=== PATIENT | male | born 1950 | race Caucasian/White ===

== ENCOUNTER 2022-02-24 13:11 | Inpatient (IN) | payer MEDICARE ==
[~2022-02-24] VITALS: Ht 172.7 cm; Wt 99.5 kg
[2022-02-24] MEDS ORDERED: KAPSPARGO SPRIN50 MG PO (13:32)
[2022-02-24] MEDS ORDERED: ACET500 PO (13:33)
[2022-02-24 13:55] LABS: BASOPHILS ABSOLUTE AUTO 0.03 K/mm3 (0.00-0.23); BASOPHILS PERCENT AUTO 0 % (0-2); EOSINOPHILS ABSOLUTE AUTO 0.15 K/mm3 (0.00-0.68); EOSINOPHILS PERCENT AUTO 2 % (0-6); Hematocrit 47.7 % (37.0-53.0); Hemoglobin 15.6 g/dL (13.5-17.5); IMMATURE GRAN ABSOLUTE AUTO 0.02 K/mm3 (0.00-0.10); IMMATURE GRAN PERCENT AUTO 0 % (0-1); LYMPHOCYTES ABSOLUTE AUTO 1.44 K/mm3 (0.84-5.20); LYMPHOCYTES PERCENT AUTO 19 % (21-46); MONOCYTES PERCENT AUTO 9 % (4-13); Mean Corpuscular HGB 29.9 pg (26.0-34.0); Mean Corpuscular HGB Conc 32.7 g/dL (31.5-36.5); Mean Corpuscular Volume 91 fL (80-100); Mean Platelet Volume 10.5 fL (9.1-12.4); NEUTROPHILS ABSOLUTE AUTO 5.16 K/mm3 (1.96-9.15); NEUTROPHILS PERCENT AUTO 69 % (41-73); Platelet Count 226 K/mm3 (150-400); RDW Coefficient Variation 14.8 % (11.7-14.2); RDW Standard Deviation 50.4 fL (35.1-46.3); Red Blood Cell Count 5.22 M/mm3 (4.30-5.90)
[2022-02-24 14:16] LABS: Albumin, Blood 3.5 g/dL (3.4-5.0); Albumin/Globulin Ratio 1.1 (0.8-1.8); Bilirubin, Total 0.6 mg/dL (0.1-1.0); Bun/Creatinine Ratio 21.2 (12.0-20.0); Calcium, Blood 8.8 mg/dL (8.5-10.1); Creatinine, Blood 0.99 mg/dL (0.60-1.20); Globulin, Blood 3.1 g/dL (2.2-4.0); Potassium, Blood 4.6 mmol/L (3.5-5.5); Total Protein, Blood 6.6 g/dL (6.4-8.2)
[2022-02-24 14:35] LABS: Anti-Xa UFH, PHA Monitoring <0.10 IU/mL; International Normalized Ratio 1.04; Prothrombin Time Results 10.9 Sec (9.7-11.5)
--- NOTE | 2022-02-24 17:33 | NUR ---
NURSING PCU DAYSHIFT ADMIT/SUMMARY: Assumed care of pt at approx 1625. Arrived from ER via gurney accompanied by RN and luz elena springer independently to unit bed. Skin is dry w/scattered scabs to LE's from working outside, no other wounds noted. Denies any pain/discomfort at rest though experiences chronic back pain at times. Tele in place, afib w/HR 100-120, no c/o CP/pressure, HTN prior to meds, no noted edema. L/S cta t/o, O2 sat 99-100% on RA, denies dyspnea, no noted cough. Abd SNT, BT+, voids w/o difficulty. PIV x2, hep gtt infusing per pharmacy dosing, NS at 125/hr. Pt denies any current needs or questions regarding plan of care. Provided afib education, discussed plan for stress test in a.m., CT PE results and cardio consult reviewed. Pt has been able to ambulate independently and w/o difficulty, call light in reach, cont to monitor until rpt is given to NOC RN.
--- NOTE | 2022-02-24 20:30 | NUR ---
ASSUMED CARE OF PATIENT AT APPROXIMATELY 1900 FROM ALEXANDRA Collins RN. PATIENT ALERT AND ORIENTED X4; INDEPENDENT TO BATHROOM AND IN ROOM. PATIENT DENIES CP/PRESSURE, PAIN ELSEWHERE, NUMBNESS, TINGLING, DIZZINESS AND NAUSEA. AFIB ON TELE; OXYGEN SATURATION ABOVE 90% ON ROOM AIR; HEPARIN GTT AND NS INFUSING PER ORDER. 2X PIV. PATIENT TO BE NPO AT MIDNIGHT
[2022-02-25 04:21] LABS: Hematocrit 44.1 % (37.0-53.0); Hemoglobin 14.3 g/dL (13.5-17.5); Mean Corpuscular HGB 29.4 pg (26.0-34.0); Mean Corpuscular HGB Conc 32.4 g/dL (31.5-36.5); Mean Corpuscular Volume 91 fL (80-100); Mean Platelet Volume 10.7 fL (9.1-12.4); Platelet Count 212 K/mm3 (150-400); RDW Coefficient Variation 14.8 % (11.7-14.2); RDW Standard Deviation 49.8 fL (35.1-46.3); Red Blood Cell Count 4.86 M/mm3 (4.30-5.90); White Blood Cell Count 7.77 K/mm3 (4.00-11.30)
[2022-02-25 04:40] LABS: Anion Gap 6 mmol/L (6-16); Blood Urea Nitrogen 18 mg/dL (8-24); Bun/Creatinine Ratio 19.5 (12.0-20.0); CHOL/HDL RATIO 5.8; CO2, Blood 22 mmol/L (21-32); Chloride, Blood 113 mmol/L (98-108); Cholesterol 209 mg/dL (50-200); Creatinine, Blood 0.92 mg/dL (0.60-1.20); Glomerular Filtration Rate 88 (60-); Glucose, Blood 88 mg/dL (70-99); HDL Cholesterol 36 mg/dL (>39); LDL/HDL RATIO 3.8; Low Density Lipoprotein Chol 138 mg/dL (0-110); Potassium, Blood 4.4 mmol/L (3.5-5.5); Sodium, Blood 141 mmol/L (136-145); Triglycerides 176 mg/dL (30-160); Very Low Density Lipoprot Chol 35 mg/dL (6-32)
--- NOTE | 2022-02-25 06:28 | NUR ---
PATIENT SLEPT ABOUT SEVEN HOURS LAST NIGHT; MEDICATED TWICE FOR HEART RATE. NO OTHER ACUTE CHANGES TO REPORT.
--- NOTE | 2022-02-25 07:16 | NUR ---
Am Note Pt alert, oriented x4, calm and cooperative with care. Pt resting in bed, sba in room. Pt denies pain, chest pain/pressure, sob, nausea, dizziness/lightheadedness and numb/tingling. Tele afib 100-120, bp stable, heparin gtt per orders, plans for stress test today. Pt ls clear t/o, spo2 >90% on ra, breathing even and unlabored. Abd soft, nontender, normoactive bt t/o. Pt has been npo since midnight other than sips of water. Other vss. Will continue to monitor.
--- NOTE | 2022-02-25 17:40 | NUR ---
Shift Summary New order from Dr Amin for additional dose of metoprolol 25mg this am. Pt completed stress test this afternoon, awaiting results; hr during stress 150's back down to 100's. Other vss. No other acute changes noted. Will continue to monitor until report given to oncoming rn.
[2022-02-26 04:29] LABS: BASOPHILS ABSOLUTE AUTO 0.05 K/mm3 (0.00-0.23); BASOPHILS PERCENT AUTO 1 % (0-2); EOSINOPHILS ABSOLUTE AUTO 0.23 K/mm3 (0.00-0.68); EOSINOPHILS PERCENT AUTO 3 % (0-6); Hematocrit 45.7 % (37.0-53.0); Hemoglobin 14.9 g/dL (13.5-17.5); IMMATURE GRAN ABSOLUTE AUTO 0.03 K/mm3 (0.00-0.10); IMMATURE GRAN PERCENT AUTO 0 % (0-1); LYMPHOCYTES ABSOLUTE AUTO 1.53 K/mm3 (0.84-5.20); LYMPHOCYTES PERCENT AUTO 20 % (21-46); MONOCYTES ABSOLUTE AUTO 0.75 K/mm3 (0.16-1.47); MONOCYTES PERCENT AUTO 10 % (4-13); Mean Corpuscular HGB 29.4 pg (26.0-34.0); Mean Corpuscular HGB Conc 32.6 g/dL (31.5-36.5); Mean Corpuscular Volume 90 fL (80-100); Mean Platelet Volume 11.2 fL (9.1-12.4); NEUTROPHILS ABSOLUTE AUTO 5.12 K/mm3 (1.96-9.15); NEUTROPHILS PERCENT AUTO 67 % (41-73); Platelet Count 209 K/mm3 (150-400); RDW Coefficient Variation 14.6 % (11.7-14.2); RDW Standard Deviation 48.7 fL (35.1-46.3); Red Blood Cell Count 5.06 M/mm3 (4.30-5.90); White Blood Cell Count 7.71 K/mm3 (4.00-11.30)
[2022-02-26 04:50] LABS: Bun/Creatinine Ratio 18.7 (12.0-20.0); Calcium, Blood 8.6 mg/dL (8.5-10.1); Creatinine, Blood 0.86 mg/dL (0.60-1.20); Potassium, Blood 4.1 mmol/L (3.5-5.5)
--- NOTE | 2022-02-26 05:55 | NUR ---
SHIFT SUMMARY PT ALERT AND ORIENTD X4. AFEBRILE. ON RA SATS OVER 96%. BP STABLE. HR AFIB 100-130'S. TACHY TO 160 WITH AMBULATION TO BATHROOM. PT DENIES CP OR ANY DISCOMFORT. INDEPENDENT FOR ADL'S. IN BED SLEEPING WITH CALL ALARM AT SIDE, WILL CONTINUE TO MONITOR UNTIL REPORT GIVEN TO DAYSHIFT RN
[2022-02-26] MEDS ORDERED: ASPI81CH PO (09:43)
[2022-02-26] MEDS ORDERED: METO50 PO (09:43)
[2022-02-26] MEDS ORDERED: ELIQUIS5 M2 PO (09:44)
--- NOTE | 2022-02-26 11:08 | NUR ---
DISCHARGE UPDATE DISCHARGE PACKET GONE OVER WITH PT AT 1050. PT LEFT UNIT AT 1100 VIA WHEELCHAIR AND ON RA. DISCHARGE PACKET IN BAG ALONG WITH PT PERSONAL BELONGINGS AND WITH PT DURING DISCHARGE. PT ABLE TO TRANSFER TO AND FROM WHEELCHAIR ON HIS OWN, TOLERATED WELL.
[2022-02-26] MEDS ORDERED: XARELTO20 MG PO (12:43)
--- NOTE | 2022-02-26 12:45 | NUR ---
AFTER DISCHARGE, PT CALLED PCU STATING HE COULD'T AFFORD THE CO-PAY OF [facility]. CALLED DR. GARY, CHANGED RX TO XARELTO. CALLED [facility] AND UPDATED PRESCRIPTION. CALLED PATIENT BACK WITH NEW CO-PAY AND FOR THE XARELTO TRIAL OFFER VOUCHER. PT STATED WAS ABLE TO AFFORD AND WAS HEADED TO [facility] NOW.
== END 2022-02-26 11:14 | disposition home or self-care (01) | DRG 282 ==
LOC: ER 13:11 → PCU 15:02
PROVIDERS: Emergency Medicine; Internal Medicine; Nurse Practitioner Acute Care; ADMIT Internal Medicine
DX: I48.91 Unspecified atrial fibrillation (principal); I21.A1 Myocardial infarction type 2; E86.0 Dehydration; N28.9 Disorder of kidney and ureter, unspecified; Z87.891 Personal history of nicotine dependence
CPT/HCPCS: 36415; 71260; 78452; 80048; 80053; 80061; 83036; 83735; 84443; 84484; 85025; 85027; 85520; 85610; 85730; 93005; 93010; 93017; 93306; 96365-59; 96375-59; 99291-25; A9270; A9500; J1644; J2785; J7030; Q9967

== ENCOUNTER → 2022-02-24 | Outpatient (CLI) | payer OTHER ==
[~2022-02-24] MED LIST: ACET500 PO; ASPI81CH PO; ELIQUIS5 M2 PO; KAPSPARGO SPRIN50 MG PO; METO50 PO; XARELTO20 MG PO
[2022-02-24 11:59] LABS: BASOPHILS ABSOLUTE AUTO 0.06 K/mm3 (0.00-0.23); BASOPHILS PERCENT AUTO 1 % (0-2); EOSINOPHILS ABSOLUTE AUTO 0.15 K/mm3 (0.00-0.68); EOSINOPHILS PERCENT AUTO 2 % (0-6); IMMATURE GRAN ABSOLUTE AUTO 0.02 K/mm3 (0.00-0.10); IMMATURE GRAN PERCENT AUTO 0 % (0-1); LYMPHOCYTES ABSOLUTE AUTO 1.24 K/mm3 (0.84-5.20); LYMPHOCYTES PERCENT AUTO 16 % (21-46); MONOCYTES ABSOLUTE AUTO 0.73 K/mm3 (0.16-1.47); MONOCYTES PERCENT AUTO 9 % (4-13); Mean Corpuscular HGB 29.8 pg (26.0-34.0); Mean Corpuscular HGB Conc 32.6 g/dL (31.5-36.5); Mean Corpuscular Volume 91 fL (80-100); Mean Platelet Volume 11.1 fL (9.1-12.4); NEUTROPHILS PERCENT AUTO 72 % (41-73); Platelet Count 279 K/mm3 (150-400); Red Blood Cell Count 6.05 M/mm3 (4.30-5.90)
[2022-02-24 12:00] LABS: Hematocrit 55.2 % (37.0-53.0)
[2022-02-24 12:17] LABS: Albumin, Blood 4.4 g/dL (3.4-5.0); Albumin/Globulin Ratio 1.1 (0.8-1.8); Bilirubin, Total 0.5 mg/dL (0.1-1.0); Bun/Creatinine Ratio 19.7 (12.0-20.0); Calcium, Blood 10.1 mg/dL (8.5-10.1); Creatinine, Blood 1.22 mg/dL (0.60-1.20); Potassium, Blood 4.3 mmol/L (3.5-5.5); Thyroid Stimulating Hormone 2.187 uIU/mL (0.360-4.800); Total Protein, Blood 8.4 g/dL (6.4-8.2)
== END | disposition home or self-care (01) ==
LOC: LAB SHORT 11:50
PROVIDERS: Physician Assistant
DX: R07.9 Chest pain, unspecified (principal); R53.83 Other fatigue
CPT/HCPCS: 80053; 84443; 84484; 85025; 85379

== ENCOUNTER → 2022-03-03 | Outpatient (CLI) | payer MEDICARE ==
[2022-03-03 14:41] LABS: BASOPHILS ABSOLUTE AUTO 0.04 K/mm3 (0.00-0.23); BASOPHILS PERCENT AUTO 1 % (0-2); EOSINOPHILS ABSOLUTE AUTO 0.16 K/mm3 (0.00-0.68); EOSINOPHILS PERCENT AUTO 2 % (0-6); Hematocrit 44.5 % (37.0-53.0); Hemoglobin 14.8 g/dL (13.5-17.5); IMMATURE GRAN ABSOLUTE AUTO 0.02 K/mm3 (0.00-0.10); IMMATURE GRAN PERCENT AUTO 0 % (0-1); LYMPHOCYTES ABSOLUTE AUTO 1.03 K/mm3 (0.84-5.20); LYMPHOCYTES PERCENT AUTO 14 % (21-46); MONOCYTES ABSOLUTE AUTO 0.89 K/mm3 (0.16-1.47); MONOCYTES PERCENT AUTO 12 % (4-13); Mean Corpuscular HGB 30.1 pg (26.0-34.0); Mean Corpuscular HGB Conc 33.3 g/dL (31.5-36.5); Mean Corpuscular Volume 90 fL (80-100); Mean Platelet Volume 10.6 fL (9.1-12.4); NEUTROPHILS ABSOLUTE AUTO 5.05 K/mm3 (1.96-9.15); NEUTROPHILS PERCENT AUTO 70 % (41-73); Platelet Count 277 K/mm3 (150-400); RDW Coefficient Variation 14.4 % (11.7-14.2); RDW Standard Deviation 47.8 fL (35.1-46.3); Red Blood Cell Count 4.92 M/mm3 (4.30-5.90); White Blood Cell Count 7.19 K/mm3 (4.00-11.30)
[2022-03-03 15:00] LABS: Albumin, Blood 3.4 g/dL (3.4-5.0); Albumin/Globulin Ratio 0.9 (0.8-1.8); Bilirubin, Total 0.5 mg/dL (0.1-1.0); Bun/Creatinine Ratio 17.4 (12.0-20.0); Calcium, Blood 8.9 mg/dL (8.5-10.1); Creatinine, Blood 1.32 mg/dL (0.60-1.20); Globulin, Blood 3.7 g/dL (2.2-4.0); Potassium, Blood 4.1 mmol/L (3.5-5.5); Total Protein, Blood 7.1 g/dL (6.4-8.2)
== END | disposition home or self-care (01) ==
LOC: LAB SHORT 14:38 → LAB 14:38
PROVIDERS: Chiropractor
DX: I48.91 Unspecified atrial fibrillation (principal)
CPT/HCPCS: 80053; 84484; 85025; 85379

== ENCOUNTER 2022-03-23 11:21 | Day surgery (SDC) | payer MEDICARE ==
[~2022-03-23] VITALS: Ht 172.7 cm; Wt 100.0 kg
[~2022-03-23 11:21] MED LIST changes: +METO25ER PO
--- NOTE | 2022-03-23 14:12 | NUR ---
PT TOLERATED KARISHMA/CARDIOVERSION WELL. CALL LIGHT IN REACH.
--- NOTE | 2022-03-23 15:10 | NUR ---
DISCHARGE INSTRUCTIONS REVIEWED AND ALL QUESTIONS ANSWERED. 20 G IV DISCONTINUED FROM RIGHT AC WITH INTACT CANNULA. PT DRANK WATER WITH NO ASPIRATION. DR DUMONT IN ROOM TO SEE PT. PT ESCORTED OUT VIA WHEELCHAIR ESCORT.
== END 2022-03-23 22:41 | disposition home or self-care (01) ==
LOC: MHTC 11:21
DX: I48.91 Unspecified atrial fibrillation (principal); I08.1 Rheumatic disorders of both mitral and tricuspid valves; G47.10 Hypersomnia, unspecified
CPT/HCPCS: 92960; 93005; 93010; 93312; 93325; A9270; J2704; J7120

== ENCOUNTER 2022-08-13 13:03 | Observation (INO) | payer MEDICARE ==
[~2022-08-13] VITALS: Ht 172.7 cm; Wt 98.4 kg
[~2022-08-13 13:03] MED LIST changes: +LISI5 PO; +Pepcid40 MG PO
[2022-08-13 13:41] LABS: BASOPHILS ABSOLUTE AUTO 0.05 K/mm3 (0.00-0.23); BASOPHILS PERCENT AUTO 1 % (0-2); EOSINOPHILS ABSOLUTE AUTO 0.13 K/mm3 (0.00-0.68); EOSINOPHILS PERCENT AUTO 2 % (0-6); Hematocrit 38.8 % (37.0-53.0); Hemoglobin 12.8 g/dL (13.5-17.5); IMMATURE GRAN ABSOLUTE AUTO 0.03 K/mm3 (0.00-0.10); IMMATURE GRAN PERCENT AUTO 0 % (0-1); LYMPHOCYTES ABSOLUTE AUTO 0.77 K/mm3 (0.84-5.20); LYMPHOCYTES PERCENT AUTO 9 % (21-46); MONOCYTES ABSOLUTE AUTO 0.72 K/mm3 (0.16-1.47); MONOCYTES PERCENT AUTO 8 % (4-13); Mean Corpuscular HGB 29.1 pg (26.0-34.0); Mean Corpuscular Volume 88 fL (80-100); NEUTROPHILS ABSOLUTE AUTO 6.83 K/mm3 (1.96-9.15); NEUTROPHILS PERCENT AUTO 80 % (41-73); Platelet Count 225 K/mm3 (150-400); RDW Standard Deviation 49.4 fL (35.1-46.3); White Blood Cell Count 8.53 K/mm3 (4.00-11.30)
[2022-08-13 14:01] LABS: Albumin, Blood 3.4 g/dL (3.4-5.0); Bilirubin, Total 0.3 mg/dL (0.1-1.0); Bun/Creatinine Ratio 19.3 (12.0-20.0); Calcium, Blood 9.1 mg/dL (8.5-10.1); Creatinine, Blood 1.14 mg/dL (0.60-1.20); Globulin, Blood 3.3 g/dL (2.2-4.0); Potassium, Blood 4.4 mmol/L (3.5-5.5); Total Protein, Blood 6.7 g/dL (6.4-8.2)
--- NOTE | 2022-08-13 19:43 | NUR ---
PT ARRIVED TO THE UNIT ORIENTED TO THE ROOM. MEDICATED PER EMAR FOR PAIN. BED IN THE LOW POSITION CALL LIGHT IN REACH PT INSTRUCTED TO CALL BEFORE GETTING UP
--- NOTE | 2022-08-14 06:45 | NUR ---
DEMETRICE SLEPT WELL OVERNIGHT. MEDICATED ONCE FOR LEFT SHOULDER AND FACIAL PAIN DUE TO GROUND LEVEL FALL DURING SYNCOPAL EPISODE AT HOME YESTERDAYS. HE CALLS APPROPRIATELY TO GET OOB. NO EPISODES OF SYNCOPE OR DISEQULIBRIUM OVERNIGHT. PATIENT'S HR WAS SR IN THE 40'S AND LOW 50'S ON TELE
--- NOTE | 2022-08-14 17:18 | NUR ---
SHIFT SUMMARY PATIENT IS ALERT AND ORIENTED. PATIENT IS PLEASENT AND COOPERATIVE WITH CARE. PATIENT HAS HAD NO ACUTE EVENTS THIS SHIFT. VITAL SIGNS REVIEWED. PATIENT HAS NOT COMPLAINED OF PAIN, SOB, NAUSEA, OR VOMITTING THIS SHIFT. BED IN LOCKED AND LOWEST POSITION. CALL LIGHT IN PLACE WILL MONITOR UNTIL SHIFT CHANGE.
--- NOTE | 2022-08-15 04:55 | NUR ---
SHIFT SUMMARY ALERT AND ORIENTED X4. DENIES PAIN. INDEPENDENT IN ROOM. PLEASANT AND COOPERATIVE WITH CARE. ON TELEMETRY, WHEN SLEEPING, HAS BEEN RUNNING SINUS MAY 39 TO 45 PER MEDICAL ADMINISTRATIVE SPECIALIST. WILL CONTINUE TO MONITR AND FOLLOW PLAN OF CARE.
--- NOTE | 2022-08-15 11:51 | NUR ---
SHIFT SUMMARY PATIENT IS ALERT AND ORIENTED. PATIENT HAD ZIO PATCH PLACED THIS MORNING. PATIENT IS AWARE OF ZIO PATCH FUNCTION AND MONITORING. PATIENT HAS HAD NO ACUTE EVENTS THIS SHIFT. VITAL SIGNS REVIEWED. PATIENT IS BEING DISCHARGED HOME BY FRIEND. [facility] IS TRANSPORTING PATIENT TO FRIENDS CAR.
== END 2022-08-15 11:32 | disposition home or self-care (01) ==
LOC: ER 13:03 → MEDS 13:04
PROVIDERS: Emergency Medicine; ADMIT Internal Medicine
DX: I48.0 Paroxysmal atrial fibrillation (principal); I49.5 Sick sinus syndrome; I25.2 Old myocardial infarction; K21.9 Gastro-esophageal reflux disease without esophagitis; I10 Essential (primary) hypertension; Z87.891 Personal history of nicotine dependence; Z79.01 Long term (current) use of anticoagulants
CPT/HCPCS: 36415; 70450; 71045; 73030; 80053; 84443; 84484; 85025; 93005; 93010; 93246; 96360; 96361; 99285-25; A9270; G0378; J7030

== ENCOUNTER 2022-09-11 19:18 | Inpatient (IN) | payer MEDICARE ==
[~2022-09-11] VITALS: Ht 172.7 cm; Wt 101.0 kg
[2022-09-11] MEDS ORDERED: Prinivil10 MG PO (19:34)
[2022-09-11 19:42] LABS: BASOPHILS ABSOLUTE AUTO 0.03 K/mm3 (0.00-0.23); BASOPHILS PERCENT AUTO 1 % (0-2); EOSINOPHILS ABSOLUTE AUTO 0.27 K/mm3 (0.00-0.68); EOSINOPHILS PERCENT AUTO 4 % (0-6); Hematocrit 37.3 % (37.0-53.0); Hemoglobin 12.6 g/dL (13.5-17.5); IMMATURE GRAN ABSOLUTE AUTO 0.03 K/mm3 (0.00-0.10); IMMATURE GRAN PERCENT AUTO 1 % (0-1); LYMPHOCYTES ABSOLUTE AUTO 1.38 K/mm3 (0.84-5.20); LYMPHOCYTES PERCENT AUTO 22 % (21-46); MONOCYTES ABSOLUTE AUTO 0.49 K/mm3 (0.16-1.47); MONOCYTES PERCENT AUTO 8 % (4-13); Mean Corpuscular HGB 29.9 pg (26.0-34.0); Mean Corpuscular HGB Conc 33.8 g/dL (31.5-36.5); Mean Corpuscular Volume 89 fL (80-100); Mean Platelet Volume 10.2 fL (9.1-12.4); NEUTROPHILS ABSOLUTE AUTO 4.13 K/mm3 (1.96-9.15); NEUTROPHILS PERCENT AUTO 65 % (41-73); Platelet Count 262 K/mm3 (150-400); RDW Standard Deviation 48.6 fL (35.1-46.3); Red Blood Cell Count 4.21 M/mm3 (4.30-5.90); White Blood Cell Count 6.33 K/mm3 (4.00-11.30)
[2022-09-11 20:00] LABS: Albumin, Blood 3.4 g/dL (3.4-5.0); Albumin/Globulin Ratio 1.1 (0.8-1.8); Bilirubin, Total 0.2 mg/dL (0.1-1.0); Bun/Creatinine Ratio 21.8 (12.0-20.0); Creatinine, Blood 1.01 mg/dL (0.60-1.20); Globulin, Blood 3.2 g/dL (2.2-4.0); Potassium, Blood 3.6 mmol/L (3.5-5.5); Total Protein, Blood 6.6 g/dL (6.4-8.2)
[2022-09-11 23:05] LABS: Magnesium, Blood 1.9 mg/dL (1.6-2.4)
[2022-09-12 00:48] LABS: Prothrombin Time Results 10.5 Sec (9.7-11.5)
[2022-09-12 02:02] LABS: BASOPHILS ABSOLUTE AUTO 0.04 K/mm3 (0.00-0.23); BASOPHILS PERCENT AUTO 1 % (0-2); EOSINOPHILS ABSOLUTE AUTO 0.26 K/mm3 (0.00-0.68); EOSINOPHILS PERCENT AUTO 4 % (0-6); Hematocrit 37.2 % (37.0-53.0); Hemoglobin 12.2 g/dL (13.5-17.5); IMMATURE GRAN ABSOLUTE AUTO 0.03 K/mm3 (0.00-0.10); IMMATURE GRAN PERCENT AUTO 1 % (0-1); LYMPHOCYTES PERCENT AUTO 23 % (21-46); MONOCYTES ABSOLUTE AUTO 0.72 K/mm3 (0.16-1.47); MONOCYTES PERCENT AUTO 11 % (4-13); Mean Corpuscular HGB 29.2 pg (26.0-34.0); Mean Corpuscular HGB Conc 32.8 g/dL (31.5-36.5); Mean Corpuscular Volume 89 fL (80-100); NEUTROPHILS ABSOLUTE AUTO 3.94 K/mm3 (1.96-9.15); NEUTROPHILS PERCENT AUTO 61 % (41-73); Platelet Count 234 K/mm3 (150-400); RDW Coefficient Variation 14.9 % (11.7-14.2); RDW Standard Deviation 49.1 fL (35.1-46.3); Red Blood Cell Count 4.18 M/mm3 (4.30-5.90); White Blood Cell Count 6.49 K/mm3 (4.00-11.30)
[2022-09-12 02:21] LABS: Albumin, Blood 3.1 g/dL (3.4-5.0); Bilirubin, Total 0.2 mg/dL (0.1-1.0); Bun/Creatinine Ratio 23.5 (12.0-20.0); Calcium, Blood 9.3 mg/dL (8.5-10.1); Creatinine, Blood 0.9 mg/dL (0.60-1.20); Potassium, Blood 4.4 mmol/L (3.5-5.5); Total Protein, Blood 6.1 g/dL (6.4-8.2)
--- NOTE | 2022-09-12 05:33 | NUR ---
ASSUEMED CARE OF PATIENT AT 22:54 LAST EVENING UPON TRANSFER FROM ER. PATIENT HAS DENIED RETURN OF CHEST PAIN HE EXPERIENCED AT HOME, REPORTING THAT IT WAS RELIEVED WITH 3 SUBLINGUAL NITROGLYCERIN AND MORPHINE FROM EMS. TROPONIN INCREASED FROM INTITIAL RESULT OF 15 TO 1108. AGAIN, PT DENIED ANY CHEST PAIN, SHORTNESS OF BREATH, NAUSEA, PAIN TO JAW OR ARMS. AFIB RVR: RATES IMPROVED FROM INITIAL PRESENTATION WITH RATES IN THE 130s-150s. DILTIAZEM DRIP TITRATED UP TO 15 MG PER HOUR AND THEN TITRATED BACK DOWN TO 5 MG PER HOUR. RATES ARE NOW IN THE 90s -110S. BLOOD PRESSURE REMAINS STABLE. HEPARIN DRIP INFUSING AT 15 UNITS/KG/HOUR USING AN ADJUSTED WEIGHT OF 82 KG. 1ST PTT SCHEDULED FOR 0700 THIS MORNING.
--- NOTE | 2022-09-12 06:13 | NUR ---
ROUNDING ON PATIENT. AWAKE AND LYING IN BED. COMPLAINING OF CHEST PAIN AT 7/10, NO RADIATION BEYOND CHEST. STATES PAIN STARTED WITHIN THE LAST HOUR, WAKING HIM FROM HIS SLEEP. CALL TO DR. KENDALL REGARDING ABOVE AND LAST TROPONIN AT 1108. ORDER RECEIVED FOR MORPHINE FOR PAIN RELIEF
--- NOTE | 2022-09-12 06:54 | NUR ---
CHEST PAIN REDUCED FROM 7/10 TO 2/10 WITH ADMINISTRATION OF 4 MG IV MORPHINE.
--- NOTE | 2022-09-12 09:40 | NUR ---
ASSUMPTION OF CARE: NEURO: ALERT AND ORIENTED ABLE TO MAKE NEEDS KNOWN. MERCEDES IS INFUSING HEPARIN, NEEDED INCREASE AND BOLUS THIS AM. BLOOD PRESSURE NORMOTENSIVE, NO LONGER ON CARDZEM DRIP FINSIHED MAG INFUSION. PATIENT HAS BEEN NPO MINUS SIPS OF WATER FOR MEDS, IN CASE OF CARDIOLOGY WANTING TO TAKE PATIENT TO PROCEDURE, PATIETN HAS YET TO BE SEEN AT THIS TIME, WILL CONTINUE TO MONITOR AND CALL IF NOT SEEN BY 11. PATIENT AWARE OF PLAN AND REASONING. PATIENT HAS BEEN COOPERATIVE WITH CARE. CHEST PAIN 2/10 AFTER NIGHT RN THIS AM GAVE 4 MG OF MORPHINE. PATIENT HAS BEEN SLEEPING WITH THE DECREASED CHEST PAIN. WILL CONTINUE TO MONITOR UNTIL SHIFT CHANGE.
--- NOTE | 2022-09-12 18:54 | NUR ---
END OF SIHFT: CHEST PAIN HAS BEEN IN CONTROL FOR THIS RN WITH 2MG OF MORPHINE, ONLY NEEDED ONCE. PATIENT HAS BEEN IN BETTER RATE CONTROL WITH TOPROL XL ON BOARD, RECENTLY ADMINISTERED PRN LOPRESSOR ANDRIAENLTY 90-110'S. DENIES SOB. GI AND NO CHANGE. PATIENT STILL INFUSING HEPARIN, NO CONCERNS FROM THE PATIENT OR THIS RN AT THIS TIME. WILL CONTINUE TO MONITOR AT THIS TIME. TELE IN PLACE. PATIENT 09/18 ON CP. AT TIME OF NOTE. IMPROVES WITH DECREASED HR.
[2022-09-13 02:20] LABS: Bun/Creatinine Ratio 17.9 (12.0-20.0); Calcium, Blood 8.7 mg/dL (8.5-10.1); Creatinine, Blood 0.95 mg/dL (0.60-1.20); Potassium, Blood 4.3 mmol/L (3.5-5.5)
--- NOTE | 2022-09-13 04:04 | NUR ---
CALL TO MD RINA HASTINGS REGARDING AFIB RVR RATES HEART RATE PERSISTS IN THE 110s TO 130s PRIMARILY, SUSTAINING GREATER THAN 120 MORE FREQUENTLY WITHIN THE PAST HOUR. PRN 1V LOPRESSOR ADMINISTERED ORDERED AT 00:12 WITH MINIMAL IMPROVEMENT IN THE FIRST HOUR AND THEN RATES CONTINUED TO INCREASE. REQUEST FOR REVIEW AND RECOMMENDATION OF INTERVENTION AT THIS TIME. MD HASTINGS TO REVIEW CHART AND MAKE DETERMINATION.
--- NOTE | 2022-09-13 05:46 | NUR ---
ATRIAL FIBRILLATION WITH RAPID VENTRICULAR RATE PERSISTS, WITH HEART RATES IN THE THE 110s-130S AND TOUCHING 140s AT TIMES. PRN IV METOPROLOL AND ADDITIONAL ONE TIME DOSE OF METOPROLOL SUCCINATE ADMINISTERD ORDERED. BLOOD PRESSURE REMAINS STABLE. MR. SCANLON REPORTS THAT HIS CHEST PAIN COMES AND GOES. HE DENIES THAT IT LASTED LONG ENOUGH TO NEED MORPHINE FOR RELIEF. EDUCATION PROVIDED TO MR. SCANLON REGARDING THE IMPORTANCE OF USING HIS CALL LIGHT FOR ASSISTANCE ANY TIME HE WANTS TO BE OUT OF BED DUE TO HIS SELF-REPORTS OF DIZZINESS WITH THE ELEVATED HEART RATE UPON ADMISSION. THIS, COUPLED WITH HIS RECENT HISTORY OF A SYNCOPAL EPISPODE WITH GROND LEVEL FALL IN AUGUST, PUTS HIM AT HIGH RISK FOR A FALL ESPECIALLY WITH A CONTINUOUS HEPARIN DRIP INFUSING. AFTER TWO INCIDENTS OF NON-COMPLIANCE AND RE-EDUCATION, MR. SCANLON HAS AGREED TO BE COMPLIANT WITH FALL PRECAUTIONS AND USE OF CALL LIGHT FOR ASSISTANCE.
--- NOTE | 2022-09-13 10:54 | NUR ---
ASSUMPTION OF CARE: START OF SHIFT CHANGE PATIENT ENDORSED SEVERE CHEST PAIN 02/15, RESOLVED TO 2/ WITH MORPHINE ONBOARD. INFUSING HEPARIN. CALL TO CARDIOLOGY INCAREASED METOPROLOL. XL CONTINUE TO TREND, NPO AFTER 0000 IF CHEST PAIN PERSIST THIS EVENING. HR PERSISTNETLY IN THE 130'S SLIGHTLY IMPROVED WITH INCREASE OF METOPROLOL. STILL AFIB. 110'S-100. WITH EXERTION 130'S CONSISTENTLY. ALERT AND ORIENTED ABLE TO MAKE NEEDS KNOWN. COOPERATIVE WITH CARE. USES CALL LIGHT APPROPRIATELY. DENIES WORSENING CHEST PAIN. IS NOT SOB AT REST AT THIS TIME. [id number]% OR > ON RA BM LAST NIGHT. ABLE TO VOID WITH SBA TO BATHROOM FOR MANUEVERING IV POLE. CONCERNS: PATIENT TO RECIEVE AN ADDITIONAL DOSE THIS EVENING OF METOPROLOL XL. CONTINUE TO WATCH TRENDS AND PRN LOPRESSOR PRN Q6. WILL CONTINUE TO MONITOR UNTIL SHIFT CHANGE.
--- NOTE | 2022-09-13 16:56 | NUR ---
END OF SHIFT: CHANGES THROUGH THE DAY. PATIENT STILL CONTINUES TO HAVE CHEST PAIN, LESS THAN PREVIOUS DAY AND NOT NEEDING FREQUENT CHEST PAIN MORPHINE. PAIN TODAY HAS GONE LOW A 1. TREND IS VERY MINIMALLY SLOWER AND IS 100-130, WHICH HAS DECREASED FROM 130-140. PATIENT WILL BE RECIEVING BID DOSE OF TOPROL XL. VERBAL FROM DR. DUMONT. PATIENT HAS BEEN TOLERATING WELL, ONLY ONE INSTANCE OF DIZZINESS AND PATIENT SELF COMPENSATED WITHOUT ANY SIGN OF SYNCOPE. PATIENT HAS BEEN ON TELE. WILL BE NPO AT 0000. POTENTIALLY REVIEVING CARDIOVERSION TOMORROW. WILL CONTINUE TO MONITOR UNTIL SHIFT CHANGE.
--- NOTE | 2022-09-14 06:33 | NUR ---
SHIFT SUMMARY A/OX4, SBA TO BATHROOM. SPO2 >92% ON RA. TELE AFIB 100-130, SUSTAINING LESS THAN 120. C/O 02/15 SUBSTERNAL CHEST PAIN, MEDICATED WITH IV MORPHINE WITH GOOD EFFECT. HEPARIN GTT RUNNING AT 20U/KG/HR. NPO SINCE MIDNIGHT. VSS, NO ACUTE CHANGES AT THIS TIME. BED IN LOWEST POSITION WITH CALL LIGHT IN REACH. WILL CONTINUE TO MONITOR AND REPORT TO ONCOMING RN.
[2022-09-14 08:47] LABS: Magnesium, Blood 2.2 mg/dL (1.6-2.4)
[2022-09-14 08:55] LABS: Albumin, Blood 3.1 g/dL (3.4-5.0); Albumin/Globulin Ratio 0.9 (0.8-1.8); Bilirubin, Total 0.4 mg/dL (0.1-1.0); Bun/Creatinine Ratio 20.2 (12.0-20.0); Creatinine, Blood 1.04 mg/dL (0.60-1.20); Globulin, Blood 3.5 g/dL (2.2-4.0); Potassium, Blood 4.4 mmol/L (3.5-5.5); Total Protein, Blood 6.6 g/dL (6.4-8.2)
--- NOTE | 2022-09-14 09:49 | NUR ---
UPDATE PT ALERT AND ORIENTED. BP STABLE. HR AFIB 100-120'S. PLAN FOR CARDIOVERSION TODAY. PER DR. DUMONT, HOLD PO METOPROLOL PRIOR TO CARDIOVERSION. PT COMPLAINED OF CP THAT WAS RELEIVED WITH [employer] ADMINISTRATION. PT NPO UNTIL PROCEDURE. WILL CONTINUE TO MONITOR CLOSELY
--- NOTE | 2022-09-14 13:19 | NUR ---
PT TAKEN TO [employer] [facility]O CARDIOVERSION. WILL AWAIT RETURN
--- NOTE | 2022-09-14 14:54 | NUR ---
PT TRANSPORTED BACK TO PCU 07 ON TELE POST CARDIOVERSION VIA WHEELCHAIR. PT TOLERATED PROCEDURE WELL WITH 2 MG OF VERSED AND 50 MCG OF FENTANYL. PATIENT DENYING ANY CHEST PAIN. PATIENT MONITORED AFTER PROCEDURE FOR 1 HOUR. EKG PERFORMED, SB. PATIENT SITTING UP IN BED, CONVERSING APPROPRIATELY. VSS ON RA. ZIOPATCH APPLIED AND INSTRUCTIONS GIVEN. BEDSIDE REPORT GIVEN TO ELVA OJEDA.
[2022-09-14] MEDS ORDERED: METO25ER PO (16:54)
--- NOTE | 2022-09-14 17:07 | NUR ---
UPDATE PT RETURNED FROM HEART CENTER 1 HOUR AFTER CARDIOVERSION. PT AWAKE AND ALERT. HR SINUS MAY IN THE 50'S. PT DENIES ANY PAIN. O2 SATS >90% ON RA. PER DR. DUMONT PT TO BRIDGE TO [facility] AND OK TO DISCHARGE THIS EVENING. DC INSTRUCTIONS GONE OVER WITH PT. PT EDUCATED ON MEDICATION CHANGES. ALL QUESTIONS ANSWERED. PT GETTING DRESSED AND THEN WILL BE TAKEN OUT BY WC
== END 2022-09-14 17:44 | disposition home or self-care (01) | DRG 282 ==
LOC: ER 19:18 → PCU 19:19 → ER 22:46 → PCU 23:06
PROVIDERS: Emergency Medicine; Internal Medicine; Internal Medicine Cardiovascular Disease; ADMIT Internal Medicine
PROC: 5A2204Z Restoration of Cardiac Rhythm, Single (ICD-10-PCS; principal; 2022-09-14)
DX: I48.0 Paroxysmal atrial fibrillation (principal); I21.A1 Myocardial infarction type 2; I49.5 Sick sinus syndrome; I10 Essential (primary) hypertension; K21.9 Gastro-esophageal reflux disease without esophagitis; I71.40 Abdominal aortic aneurysm, without rupture, unspecified; I08.3 Combined rheumatic disorders of mitral, aortic and tricuspid valves; Z98.890 Other specified postprocedural states; Z87.891 Personal history of nicotine dependence; Z79.01 Long term (current) use of anticoagulants; Z79.811 Long term (current) use of aromatase inhibitors; Z79.82 Long term (current) use of aspirin
CPT/HCPCS: 36415; 71045; 80048; 80053; 83690; 83735; 83880; 84484; 85025; 85610; 85730; 92960; 93005; 93010; 93246; 96374; 96375; 96376; 99152; 99285-25; A9270; G0378; J1644; J2250; J2270; J2310; J3010; J3475; J3480; J7030; J7050

== ENCOUNTER 2022-11-15 17:53 | Emergency (ER) | payer MEDICARE ==
[~2022-11-15] VITALS: Ht 172.7 cm; Wt 93.4 kg
[~2022-11-15 17:53] MED LIST changes: +Prinivil10 MG PO
[2022-11-15 18:40] LABS: BASOPHILS ABSOLUTE AUTO 0.04 K/mm3 (0.00-0.23); BASOPHILS PERCENT AUTO 1 % (0-2); EOSINOPHILS ABSOLUTE AUTO 0.29 K/mm3 (0.00-0.68); EOSINOPHILS PERCENT AUTO 4 % (0-6); Hematocrit 46.9 % (37.0-53.0); Hemoglobin 15.6 g/dL (13.5-17.5); IMMATURE GRAN ABSOLUTE AUTO 0.01 K/mm3 (0.00-0.10); IMMATURE GRAN PERCENT AUTO 0 % (0-1); LYMPHOCYTES ABSOLUTE AUTO 1.65 K/mm3 (0.84-5.20); LYMPHOCYTES PERCENT AUTO 24 % (21-46); MONOCYTES ABSOLUTE AUTO 0.66 K/mm3 (0.16-1.47); MONOCYTES PERCENT AUTO 10 % (4-13); Mean Corpuscular HGB 28.6 pg (26.0-34.0); Mean Corpuscular HGB Conc 33.3 g/dL (31.5-36.5); Mean Corpuscular Volume 86 fL (80-100); Mean Platelet Volume 10.6 fL (9.1-12.4); NEUTROPHILS ABSOLUTE AUTO 4.15 K/mm3 (1.96-9.15); NEUTROPHILS PERCENT AUTO 61 % (41-73); Platelet Count 255 K/mm3 (150-400); RDW Standard Deviation 43.8 fL (35.1-46.3); Red Blood Cell Count 5.45 M/mm3 (4.30-5.90)
[2022-11-15 18:58] LABS: Albumin, Blood 3.4 g/dL (3.4-5.0); Bilirubin, Total 0.3 mg/dL (0.1-1.0); Bun/Creatinine Ratio 17.5 (12.0-20.0); Calcium, Blood 8.9 mg/dL (8.5-10.1); Creatinine, Blood 1.03 mg/dL (0.60-1.20); Globulin, Blood 3.5 g/dL (2.2-4.0); Potassium, Blood 4.1 mmol/L (3.5-5.5); Total Protein, Blood 6.9 g/dL (6.4-8.2)
[2022-11-15] MEDS ORDERED: METO25ER PO (21:46)
== END 2022-11-15 22:05 | disposition home or self-care (01) ==
LOC: ER 17:53
PROVIDERS: Student in an Organized Health Care Education/Training Program
DX: R55 Syncope and collapse (principal); I25.2 Old myocardial infarction; Z79.899 Other long term (current) drug therapy; Z79.01 Long term (current) use of anticoagulants; Z87.891 Personal history of nicotine dependence
CPT/HCPCS: 71046; 80053; 83880; 84484; 85025; 93005; 93010; A9270; J7030

== ENCOUNTER 2022-11-23 19:38 | Inpatient (IN) | payer MEDICARE ==
[~2022-11-23] VITALS: Ht 172.7 cm; Wt 98.6 kg
[2022-11-23 20:13] LABS: BASOPHILS ABSOLUTE AUTO 0.06 K/mm3 (0.00-0.23); BASOPHILS PERCENT AUTO 1 % (0-2); EOSINOPHILS ABSOLUTE AUTO 0.35 K/mm3 (0.00-0.68); EOSINOPHILS PERCENT AUTO 5 % (0-6); Hemoglobin 15.2 g/dL (13.5-17.5); IMMATURE GRAN ABSOLUTE AUTO 0.03 K/mm3 (0.00-0.10); IMMATURE GRAN PERCENT AUTO 0 % (0-1); LYMPHOCYTES PERCENT AUTO 25 % (21-46); MONOCYTES ABSOLUTE AUTO 0.59 K/mm3 (0.16-1.47); MONOCYTES PERCENT AUTO 9 % (4-13); Mean Corpuscular HGB 28.8 pg (26.0-34.0); Mean Corpuscular Volume 87 fL (80-100); Mean Platelet Volume 9.9 fL (9.1-12.4); NEUTROPHILS ABSOLUTE AUTO 3.99 K/mm3 (1.96-9.15); NEUTROPHILS PERCENT AUTO 59 % (41-73); Platelet Count 291 K/mm3 (150-400); RDW Coefficient Variation 14.2 % (11.7-14.2); RDW Standard Deviation 45.5 fL (35.1-46.3); Red Blood Cell Count 5.28 M/mm3 (4.30-5.90); White Blood Cell Count 6.72 K/mm3 (4.00-11.30)
[2022-11-23 20:35] LABS: Albumin, Blood 3.3 g/dL (3.4-5.0); Albumin/Globulin Ratio 0.9 (0.8-1.8); Bilirubin, Total 0.3 mg/dL (0.1-1.0); Bun/Creatinine Ratio 17.3 (12.0-20.0); Creatinine, Blood 1.1 mg/dL (0.60-1.20); Globulin, Blood 3.7 g/dL (2.2-4.0); Potassium, Blood 4.7 mmol/L (3.5-5.5)
[2022-11-23 23:27] LABS: Prothrombin Time Results 10.5 Sec (9.7-11.5)
[2022-11-23 23:39] LABS: Anti-Xa UFH, PHA Monitoring >1.50 IU/mL
[2022-11-24] VITALS (14 sets, daily range): BP systolic 100–131; BP diastolic 66–106
[2022-11-24] MEDS ORDERED: ATOR10 PO (00:29)
[2022-11-24] MEDS ORDERED: Vitamin D1000 UNI1 PO (00:30)
[2022-11-24] MEDS ORDERED: ASCORBIC ACID500 MG PO (00:30)
--- NOTE | 2022-11-24 05:48 | NUR ---
Assumed care of pt at 0015 as an ER admit. A/Ox4, SBA to bathroom. Maintains over 95% on RA. Afib on tele 120-140's. C/o intermittent CP, repeat EKG obtained. Patient was able to go to sleep after this. SBP low 100's, MAPs over 65. Metoprolol push brought HR down to low 100's for only about an hour before coming back up to 120-140. Heparin gtt running per emar. Will report to dayshift RUSTY.
[2022-11-24 06:17] LABS: BASOPHILS ABSOLUTE AUTO 0.06 K/mm3 (0.00-0.23); BASOPHILS PERCENT AUTO 1 % (0-2); EOSINOPHILS ABSOLUTE AUTO 0.43 K/mm3 (0.00-0.68); EOSINOPHILS PERCENT AUTO 5 % (0-6); Hematocrit 44.2 % (37.0-53.0); Hemoglobin 14.3 g/dL (13.5-17.5); IMMATURE GRAN ABSOLUTE AUTO 0.03 K/mm3 (0.00-0.10); IMMATURE GRAN PERCENT AUTO 0 % (0-1); LYMPHOCYTES PERCENT AUTO 30 % (21-46); MONOCYTES ABSOLUTE AUTO 0.75 K/mm3 (0.16-1.47); MONOCYTES PERCENT AUTO 9 % (4-13); Mean Corpuscular HGB Conc 32.4 g/dL (31.5-36.5); Mean Corpuscular Volume 87 fL (80-100); Mean Platelet Volume 9.8 fL (9.1-12.4); NEUTROPHILS ABSOLUTE AUTO 4.61 K/mm3 (1.96-9.15); NEUTROPHILS PERCENT AUTO 55 % (41-73); Platelet Count 259 K/mm3 (150-400); RDW Coefficient Variation 14.4 % (11.7-14.2); RDW Standard Deviation 45.4 fL (35.1-46.3); White Blood Cell Count 8.38 K/mm3 (4.00-11.30)
[2022-11-24 06:39] LABS: Albumin/Globulin Ratio 0.9 (0.8-1.8); Bilirubin, Total 0.2 mg/dL (0.1-1.0); Bun/Creatinine Ratio 19.8 (12.0-20.0); Calcium, Blood 8.8 mg/dL (8.5-10.1); Creatinine, Blood 1.01 mg/dL (0.60-1.20); Globulin, Blood 3.2 g/dL (2.2-4.0); Magnesium, Blood 2.1 mg/dL (1.6-2.4); Potassium, Blood 4.5 mmol/L (3.5-5.5); Total Protein, Blood 6.2 g/dL (6.4-8.2)
--- NOTE | 2022-11-24 17:46 | NUR ---
ASSUMED CARE OF PT AT [address] FELICIANO FROM CARDIOLOGY IN TO SEE PT, MAY CARDIOVERT HIM THIS AFTERNOON. PT RESTED COMFORTABLY T/O THE DAY, NO CHEST PAIN AND NO ACUTE CHANGES. THIS EVENING, DR FELICIANO INFORMED THIS RN THAT THE CARDIOVERSION WILL BE TOMORROW. PT WILL BE NPO AFTER MN. SEE DOCUMENTED VS AND ASSESSMENT, PT HAS DENIED CP T/O THE SHIFT, VSS. PT ABLE TO USE CALL LIGHT FOR NEEDS, CALL LIGHT IN REACH. WILL CONTINUE TO MONITOR AND GIVE REPORT TO NOC SHIFT RN.
[2022-11-25] VITALS (10 sets, daily range): BP systolic 102–121; BP diastolic 77–88
--- NOTE | 2022-11-25 06:54 | NUR ---
SHIFT SUMMARY PATIENT ALERT AND ORIENTED X4. HE HAS DENIED HAVING CHEST PAIN OR SHORTNESS OF BREATH. LUNG SOUNDS CLEAR, 95% ON ROOM AIR. HEART RHYTHM IS STILL AFIB WITH RATE 110'S TO 120'S, OCCASIONALLY TOUCHING THE 140'S AND 150'S. PATIENT CONTINUES ON HEPARIN AT 16 UNITS/KG/HR. PATIENT IS CURRENTLY NPO FOR ANTICIPATED CARDIOVERSION. NO ACUTE ISSUES NOTED OVERNIGHT. WILL CONTINUE TO MONITOR. CALL LIGHT WITHIN REACH.
--- NOTE | 2022-11-25 07:00 | NUR ---
ASSUMPTION OF CARE PT RECEIVING HEPARIN 16UNITS/KG/HR. DOSING AND ORDER REVIEWED WITH GABBY OJEDA DURING BEDSIDE REPORT. PT IS A&OX4 WITH PLEASANT AFFECT. PT AWARE OF PLAN FOR CARDIOVERSION THIS AM. PT DENIES CP AT THIS TIME BUT REPORTS "A LITTLE" CP DURING THE NIGHT THAT IS DESCRIBED FLUTTERING. AFIB ON MONITOR WITH RATE 110S-130S. BP STABLE. DUMPSTER DRIVER AT BEDSIDE FOR BEDBATH. BED IN LOW POSITION AND CALL LIGHT WITHIN REACH.
[2022-11-25 08:14] LABS: Bun/Creatinine Ratio 16.4 (12.0-20.0); Calcium, Blood 8.5 mg/dL (8.5-10.1); Creatinine, Blood 1.1 mg/dL (0.60-1.20); Potassium, Blood 4.8 mmol/L (3.5-5.5)
--- NOTE | 2022-11-25 10:14 | NUR ---
PT BROUGHT TO HEART CENTER FOR CARDIOVERSION WITH ANESTHESIA PROCEDURE. CARDIOVERSION COMPLETE. PT TOLERATES WELL. VSS.NADN. SINUS RHYTHM ON MONITOR. WILL CONTINUE TO MONITOR.
--- NOTE | 2022-11-25 10:53 | NUR ---
UPDATE PT BACK FROM CARDIOVERSION IN NSR
--- NOTE | 2022-11-25 17:24 | NUR ---
SHIFT SUMMARY PT HAD SUCCESSFUL CARDIOVERSION THIS AM. NOW IN NSR WITH RATES IN 40S-50S. PT STATES THIS IS BASELINE. REMAINS ON HEPARIN GTT AT 16 U/KG/HR, POTENTIAL FOR PACEMAKER PLACEMENT. OTHERWISE INDEPENDENT IN ROOM, A&OX4 AND CALM AND COOPERATIVE.
[2022-11-26] VITALS (7 sets, daily range): BP systolic 104–121; BP diastolic 59–76
[2022-11-26 04:20] LABS: Hematocrit 39.7 % (37.0-53.0); Hemoglobin 13.2 g/dL (13.5-17.5); Mean Corpuscular HGB 28.9 pg (26.0-34.0); Mean Corpuscular HGB Conc 33.2 g/dL (31.5-36.5); Mean Corpuscular Volume 87 fL (80-100); Mean Platelet Volume 10.2 fL (9.1-12.4); Platelet Count 227 K/mm3 (150-400); RDW Coefficient Variation 14.1 % (11.7-14.2); RDW Standard Deviation 44.6 fL (35.1-46.3); Red Blood Cell Count 4.57 M/mm3 (4.30-5.90); White Blood Cell Count 6.04 K/mm3 (4.00-11.30)
[2022-11-26 04:40] LABS: Bun/Creatinine Ratio 19.6 (12.0-20.0); Calcium, Blood 8.6 mg/dL (8.5-10.1); Creatinine, Blood 1.07 mg/dL (0.60-1.20); Potassium, Blood 4.3 mmol/L (3.5-5.5)
--- NOTE | 2022-11-26 06:24 | NUR ---
SHIFT SUMMARY PATIENT ALERT AND ORIENTED X4. DENIES CHEST PAIN AND SHORTNESS OF BREATH. LUNG SOUNDS CLEAR, SATING 97% ON ROOM AIR. PATIENT HAS BEEN SINUS MAY IN 40'S-50'S OVERNIGHT, AT ONE POINT TOUCHING DOWN TO 36 FOR ABOUT 19 SECONDS PER TELEMETRY WHILE THE PATIENT WAS SLEEPING. WILL CONTINUE TO MONITOR. CALL LIGHT WITHIN REACH.
--- NOTE | 2022-11-26 17:09 | NUR ---
SHIFT SUMMARY ALERT, ORIENTED, AND INDEPENDENT IN ROOM. TELE MAY 40S TO 50S. OTHER VSS. AM METOPROLOL HELD. DR FELICIANO PLANS FOR PACEMAKER IN AM, PATIENT AGREEABLE TO THE PLAN. NPO AFTER MIDNIGHT. ORDERS IN CHART TO STOP HEPARIN GTT AT 0200 ON Wednesday11/27/22. TOLERATING CARDIAC DIET AND LIQUIDS. VOIDING WELL. DENIES CHEST PAIN AND SHORTNESS OF BREATH. SEVERAL FAMILY MEMBERS VISITED DURING AFTERNOON.
--- NOTE | 2022-11-27 02:08 | NUR ---
heparin gtt off at 0200
[2022-11-27 04:08] VITALS: BP 98/60
--- NOTE | 2022-11-27 04:21 | NUR ---
SHIFT SUMMARY PATIENT IS ALERT AND ORIENTED X4. 02 SATS 99% ON RA. BP STABLE. HR SB 40-55. DENIES CP PRESSURE. HEPARIN OFF AT 0200 THIS AM. INDEPENDENT IN ROOM. NPO SINCE MIDNIGHT. CALL LIGHT IN REACH
[2022-11-27 07:34] VITALS: BP 115/56
[2022-11-27 10:46] VITALS: BP 136/76
[2022-11-27] MEDS ORDERED: LISI5 PO (14:26)
[2022-11-27] MEDS ORDERED: NITR.4SL SL (14:27)
[2022-11-27] MEDS ORDERED: METO50ER PO (14:29)
[2022-11-27 14:55] VITALS: BP 109/68
--- NOTE | 2022-11-27 15:48 | NUR ---
SHIFT SUMMARY ALERT, ORIENTED, AND INDEPENDENT IN ROOM. WENT FOR PLACEMENT OF PACEMAKER AT [address] FELICIANO. RETURNED TO ROOM AT 1100. SMALL GAUZE DRESSING TO LEFT UPPER CHEST C/D/I WITH TEGADERM. LEFT ARM PLACED IN SLING, ICE PACK APPLIED TO LEFT UPPER CHEST, LEFT ARM ELEV ON PILLOWS. ABOUT 1200 PATIENT DID COMPLAIN OF SOME NEW CENTRAL CHEST PAIN, DR FELICIANO WAS AT BEDSIDE. EKG DONE, ONE DOSE SL NITRO GIVEN. EKG NORMAL PER DR FELICIANO, MONITORED BP WHICH WAS SOFT FOR ABOUT 2 HOURS IN 80S AND 90S SYSTOLIC, THEN RETURNED TO BASELINE SYSTOLIC BP OF 110S. HR PACED AT 60. TOLERATING CARDIAC DIET AND LIQUIDS. VOIDING WELL. UP TO BATHROOM SBA. DISCHARGE ORDER OBTAINED FROM DR HEALY. PATIENT WILL FOLLOW UP WITH PCP AND CARDIOLOGY. WILL DISCHARGE HOME AFTER 1700. NEW RX'S FAXED TO [facility]. WILL GIVE REPORT TO LYNSEY PEREZ RN.
--- NOTE | 2022-11-27 17:20 | NUR ---
DISCHARGE NOTE: PT DISCHARGED HOME WITH FAMILY. DISCHARGE TEACHING REVIEWED WITH PT AND HIS DTR AT BEDSIDE, INCLUDING MEDICATION LIST, NEW PRESCRIPTIONS, FOLLOW UP APPOINTMENTS AND PACEMAKER MOVEMENT PRECAUTIONS. PT AND DRT VERBALIZE UNDERSTANDING AND HAVE NO QUESTIONS OR CONCERNS. PT IS DISCHARGED WITH SLING IN PLACE TO L ARM. ALL BELONGINGS SENT HOME WITH PT. NO FURTHER DISCHARGE NEEDS IDENTIFIED.
== END 2022-11-27 17:10 | disposition home or self-care (01) | DRG 244 ==
LOC: ER 19:38 → PCU 22:47
PROVIDERS: Family Medicine; Student in an Organized Health Care Education/Training Program; ADMIT Student in an Organized Health Care Education/Training Program
PROC: 5A2204Z Restoration of Cardiac Rhythm, Single (ICD-10-PCS; 2022-11-25)
PROC: 0JH606Z Insertion of Pacemaker, Dual Chamber into Chest Subcutaneous Tissue and Fascia, Open Approach (ICD-10-PCS; principal; 2022-11-27)
PROC: 02H63JZ Insertion of Pacemaker Lead into Right Atrium, Percutaneous Approach (ICD-10-PCS; 2022-11-27)
PROC: 02HK3JZ Insertion of Pacemaker Lead into Right Ventricle, Percutaneous Approach (ICD-10-PCS; 2022-11-27)
DX: I48.0 Paroxysmal atrial fibrillation (principal); K21.9 Gastro-esophageal reflux disease without esophagitis; I10 Essential (primary) hypertension; I49.5 Sick sinus syndrome; I25.10 Atherosclerotic heart disease of native coronary artery without angina pectoris; Z79.01 Long term (current) use of anticoagulants; I25.2 Old myocardial infarction; Z91.148 Patient's other noncompliance with medication regimen for other reason; Z79.899 Other long term (current) drug therapy; Z79.82 Long term (current) use of aspirin; Z79.811 Long term (current) use of aromatase inhibitors; Z98.890 Other specified postprocedural states; Z87.891 Personal history of nicotine dependence; E66.9 Obesity, unspecified; Z68.32 Body mass index [BMI] 32.0-32.9, adult
CPT/HCPCS: 33208; 36415; 71046; 80048; 80053; 83735; 84443; 84484; 85025; 85027; 85520; 85610; 85730; 92960; 93005; 93010; 93306; 96374; 99152; 99153; 99285-25; A9270; C1785; C1894; C1898; J0690; J1644; J2250; J2704; J3010; J7030; J7040; J7050; Q9967

== ENCOUNTER → 2022-12-17 | Outpatient (CLI) | payer MEDICARE ==
[~2022-12-17] MED LIST changes: +ASCORBIC ACID500 MG PO; +ATOR10 PO; +METO50ER PO; +NITR.4SL SL; +Vitamin D1000 UNI1 PO
[2022-12-17 11:12] LABS: BASOPHILS ABSOLUTE AUTO 0.05 K/mm3 (0.00-0.23); BASOPHILS PERCENT AUTO 1 % (0-2); EOSINOPHILS ABSOLUTE AUTO 0.32 K/mm3 (0.00-0.68); EOSINOPHILS PERCENT AUTO 6 % (0-6); Hematocrit 41.7 % (37.0-53.0); Hemoglobin 13.7 g/dL (13.5-17.5); IMMATURE GRAN ABSOLUTE AUTO 0.03 K/mm3 (0.00-0.10); IMMATURE GRAN PERCENT AUTO 1 % (0-1); LYMPHOCYTES ABSOLUTE AUTO 1.73 K/mm3 (0.84-5.20); LYMPHOCYTES PERCENT AUTO 31 % (21-46); MONOCYTES ABSOLUTE AUTO 0.64 K/mm3 (0.16-1.47); MONOCYTES PERCENT AUTO 11 % (4-13); Mean Corpuscular HGB 28.5 pg (26.0-34.0); Mean Corpuscular HGB Conc 32.9 g/dL (31.5-36.5); Mean Corpuscular Volume 87 fL (80-100); Mean Platelet Volume 10.6 fL (9.1-12.4); NEUTROPHILS ABSOLUTE AUTO 2.87 K/mm3 (1.96-9.15); NEUTROPHILS PERCENT AUTO 51 % (41-73); Platelet Count 257 K/mm3 (150-400); RDW Coefficient Variation 13.8 % (11.7-14.2); RDW Standard Deviation 43.6 fL (35.1-46.3); White Blood Cell Count 5.64 K/mm3 (4.00-11.30)
[2022-12-17 11:31] LABS: Alanine Aminotransfer (ALT/SGP 19 U/L (12-78); Albumin, Blood 3.5 g/dL (3.4-5.0); Alk Phos 92 U/L (50-136); Anion Gap 6 mmol/L (6-16); Aspartate Aminotrans (AST/SGOT 10 U/L (12-37); Bilirubin, Total 0.3 mg/dL (0.1-1.0); Blood Urea Nitrogen 22 mg/dL (8-24); Bun/Creatinine Ratio 20.8 (12.0-20.0); CHOL/HDL RATIO 6.4; CO2, Blood 24 mmol/L (21-32); Calcium, Blood 8.5 mg/dL (8.5-10.1); Chloride, Blood 109 mmol/L (98-108); Cholesterol 218 mg/dL (50-200); Creatinine, Blood 1.06 mg/dL (0.60-1.20); Globulin, Blood 3.4 g/dL (2.2-4.0); Glomerular Filtration Rate 74 (60-); Glucose, Blood 98 mg/dL (70-99); HDL Cholesterol 34 mg/dL (>39); LDL/HDL RATIO 4.6; Low Density Lipoprotein Chol 157 mg/dL (0-110); PSA, %Free 20.7 %; Potassium, Blood 4.4 mmol/L (3.5-5.5); Sodium, Blood 139 mmol/L (136-145); Total Protein, Blood 6.9 g/dL (6.4-8.2); Triglycerides 134 mg/dL (30-160); Very Low Density Lipoprot Chol 26 mg/dL (6-32)
== END | disposition home or self-care (01) ==
LOC: LAB 09:13 → LAB SHORT 09:13
PROVIDERS: Nurse Practitioner Family
DX: N40.1 Benign prostatic hyperplasia with lower urinary tract symptoms (principal); I10 Essential (primary) hypertension; R73.09 Other abnormal glucose
CPT/HCPCS: 80053; 80061; 83036; 84153; 84154; 85025

== ENCOUNTER 2023-01-25 09:21 | Day surgery (SDC) | payer MEDICARE ==
[~2023-01-25 09:21] MED LIST changes: +ALBU90OI INH; +ATOR20 PO
[2023-01-25 09:45] VITALS: BP 136/70
[2023-01-25 10:00] VITALS: BP 120/69
[2023-01-25 10:15] VITALS: BP 125/66
[2023-01-25 10:26] VITALS: BP 99/87
[2023-01-25 10:45] VITALS: BP 111/77
== END 2023-01-25 15:00 | disposition home or self-care (01) ==
LOC: MHTC 09:21
DX: I49.5 Sick sinus syndrome (principal); Z95.0 Presence of cardiac pacemaker
CPT/HCPCS: 93280; J1644; J7030; J7050

== ENCOUNTER 2023-01-25 09:26 | Emergency (ER) | payer MEDICARE ==
[~2023-01-25] VITALS: Ht 172.7 cm; Wt 98.4 kg
[2023-01-25 10:32] LABS: BASOPHILS ABSOLUTE AUTO 0.05 K/mm3 (0.00-0.23); BASOPHILS PERCENT AUTO 1 % (0-2); EOSINOPHILS ABSOLUTE AUTO 0.33 K/mm3 (0.00-0.68); EOSINOPHILS PERCENT AUTO 6 % (0-6); Hematocrit 41.5 % (37.0-53.0); Hemoglobin 13.6 g/dL (13.5-17.5); IMMATURE GRAN ABSOLUTE AUTO 0.02 K/mm3 (0.00-0.10); IMMATURE GRAN PERCENT AUTO 0 % (0-1); LYMPHOCYTES ABSOLUTE AUTO 1.24 K/mm3 (0.84-5.20); LYMPHOCYTES PERCENT AUTO 22 % (21-46); MONOCYTES ABSOLUTE AUTO 0.64 K/mm3 (0.16-1.47); MONOCYTES PERCENT AUTO 11 % (4-13); Mean Corpuscular HGB 28.6 pg (26.0-34.0); Mean Corpuscular HGB Conc 32.8 g/dL (31.5-36.5); Mean Corpuscular Volume 87 fL (80-100); Mean Platelet Volume 10.3 fL (9.1-12.4); NEUTROPHILS ABSOLUTE AUTO 3.42 K/mm3 (1.96-9.15); NEUTROPHILS PERCENT AUTO 60 % (41-73); Platelet Count 235 K/mm3 (150-400); RDW Coefficient Variation 14.5 % (11.7-14.2); RDW Standard Deviation 46.2 fL (35.1-46.3); Red Blood Cell Count 4.75 M/mm3 (4.30-5.90)
[2023-01-25 11:08] LABS: Albumin, Blood 3.4 g/dL (3.4-5.0); Bilirubin, Total 0.3 mg/dL (0.1-1.0); Bun/Creatinine Ratio 19.4 (12.0-20.0); Calcium, Blood 9.4 mg/dL (8.5-10.1); Creatinine, Blood 1.03 mg/dL (0.60-1.20); Globulin, Blood 3.3 g/dL (2.2-4.0); Potassium, Blood 4.5 mmol/L (3.5-5.5); Total Protein, Blood 6.7 g/dL (6.4-8.2)
--- NOTE | 2023-01-25 12:38 | NUR ---
PT TO RECOVERY ROOM VIA BED AFTER PROCEDURE. AWAKE AND ALERT, DENIES PAIN OR DISCOMFORT. VSS, CALL LIGHT IN REACH. MULTIPLE FAMILY MEMBERS AT BEDSIDE VISITING WITH PT.
[2023-01-25 13:00] VITALS: BP 155/96
--- NOTE | 2023-01-25 14:30 | NUR ---
ALL AIR HAS BEEN REMOVED FROM RIGHT RADIAL TR BAND, NO BLEEDING NOTED AT SITE. SMALL AMOUNT OF BRUISING AND SWELLING PROXIMAL TO TR BAND. 10 MINUTES LIGHT MANUAL PRESSURE HELD TO SITE, AREA FEELS SOFT AND IS NON-TENDER AFTER PRESSURE HAS BEEN HELD. FAMILY REMAINS AT BEDSIDE.
--- NOTE | 2023-01-25 15:03 | NUR ---
IV DC'D, CATH INTACT. PT AND FAMILY GIVEN DC INSTRUCTIONS AND FOLLOW UP INFO, VERBALIZED UNDERSTANDING. TR BAND REMOVED FROM LEFT RADIAL SITE, CLOTH DOT DRESSING AND SPLINT IN PLACE. PT OUT TO CAR VIA WHEELCHAIR, ACCOMPANIED BY FAMILY.
== END 2023-01-25 10:52 ==
LOC: ER 09:26
PROVIDERS: Emergency Medicine
DX: I24.9 Acute ischemic heart disease, unspecified (principal); Z87.891 Personal history of nicotine dependence; Z79.899 Other long term (current) drug therapy; Z79.82 Long term (current) use of aspirin
CPT/HCPCS: 71046; 76937; 80053; 83690; 84484; 85025; 93005; 93010; 93458; 99152; 99153; 99285-25; C1769; C1887; C1894; J2250; J3010; J3246; J7030; Q9967

== ENCOUNTER 2024-04-04 12:26 | Emergency (ER) | payer MEDICARE ==
[~2024-04-04] VITALS: Ht 172.7 cm; Wt 103.9 kg
[~2024-04-04 12:26] MED LIST changes: +AMLODIPINE BES2.5 MG PO; +Isosorbide Mono30 MG PO; +TAMSULOSIN HCL0.4 M1 PO
[2024-04-04 12:53] LABS: BASOPHILS ABSOLUTE AUTO 0.03 K/mm3 (0.00-0.23); BASOPHILS PERCENT AUTO 1 % (0-2); EOSINOPHILS ABSOLUTE AUTO 0.14 K/mm3 (0.00-0.68); EOSINOPHILS PERCENT AUTO 3 % (0-6); Hematocrit 45.2 % (37.0-53.0); Hemoglobin 14.5 g/dL (13.5-17.5); IMMATURE GRAN ABSOLUTE AUTO 0.01 K/mm3 (0.00-0.10); IMMATURE GRAN PERCENT AUTO 0 % (0-1); LYMPHOCYTES PERCENT AUTO 22 % (21-46); MONOCYTES ABSOLUTE AUTO 0.49 K/mm3 (0.16-1.47); MONOCYTES PERCENT AUTO 11 % (4-13); Mean Corpuscular HGB 28.6 pg (26.0-34.0); Mean Corpuscular HGB Conc 32.1 g/dL (31.5-36.5); Mean Corpuscular Volume 89 fL (80-100); Mean Platelet Volume 10.2 fL (9.1-12.4); NEUTROPHILS ABSOLUTE AUTO 2.96 K/mm3 (1.96-9.15); NEUTROPHILS PERCENT AUTO 64 % (41-73); Platelet Count 184 K/mm3 (150-400); RDW Coefficient Variation 14.6 % (11.7-14.2); RDW Standard Deviation 47.5 fL (35.1-46.3); Red Blood Cell Count 5.07 M/mm3 (4.30-5.90); White Blood Cell Count 4.63 K/mm3 (4.00-11.30)
[2024-04-04 13:47] LABS: Albumin, Blood 3.6 g/dL (3.4-5.0); Albumin/Globulin Ratio 1.1 (0.8-1.8); Bilirubin, Total 0.6 mg/dL (0.1-1.0); Bun/Creatinine Ratio 19.6 (12.0-20.0); Calcium, Blood 8.9 mg/dL (8.5-10.1); Creatinine, Blood 0.97 mg/dL (0.60-1.20); Globulin, Blood 3.2 g/dL (2.2-4.0); Potassium, Blood 4.4 mmol/L (3.5-5.5); Total Protein, Blood 6.8 g/dL (6.4-8.2)
[2024-04-04] MEDS ORDERED: METO50ER PO (16:50)
[2024-04-04 17:00] VITALS: BP 133/97
== END 2024-04-04 17:07 | disposition home or self-care (01) ==
LOC: ER 12:26
PROVIDERS: Physician Assistant
DX: I48.91 Unspecified atrial fibrillation (principal); K21.9 Gastro-esophageal reflux disease without esophagitis; I10 Essential (primary) hypertension; Z87.891 Personal history of nicotine dependence; Z79.82 Long term (current) use of aspirin; Z79.899 Other long term (current) drug therapy
CPT/HCPCS: 71046; 80053; 83880; 84484; 85025; 93005; 93010; 99284-25

== ENCOUNTER 2024-06-04 13:22 | Emergency (ER) | payer MEDICARE ==
[~2024-06-04] VITALS: Ht 172.7 cm; Wt 103.4 kg
[2024-06-04 13:45] LABS: BASOPHILS ABSOLUTE AUTO 0.02 K/mm3 (0.00-0.23); BASOPHILS PERCENT AUTO 0 % (0-2); EOSINOPHILS ABSOLUTE AUTO 0.13 K/mm3 (0.00-0.68); EOSINOPHILS PERCENT AUTO 2 % (0-6); Hematocrit 41.5 % (37.0-53.0); Hemoglobin 13.6 g/dL (13.5-17.5); IMMATURE GRAN ABSOLUTE AUTO 0.01 K/mm3 (0.00-0.10); IMMATURE GRAN PERCENT AUTO 0 % (0-1); LYMPHOCYTES ABSOLUTE AUTO 1.03 K/mm3 (0.84-5.20); LYMPHOCYTES PERCENT AUTO 19 % (21-46); MONOCYTES ABSOLUTE AUTO 0.41 K/mm3 (0.16-1.47); MONOCYTES PERCENT AUTO 8 % (4-13); Mean Corpuscular HGB 29.6 pg (26.0-34.0); Mean Corpuscular HGB Conc 32.8 g/dL (31.5-36.5); Mean Corpuscular Volume 90 fL (80-100); Mean Platelet Volume 9.9 fL (9.1-12.4); NEUTROPHILS ABSOLUTE AUTO 3.72 K/mm3 (1.96-9.15); NEUTROPHILS PERCENT AUTO 70 % (41-73); Platelet Count 165 K/mm3 (150-400); RDW Standard Deviation 49.5 fL (35.1-46.3); White Blood Cell Count 5.32 K/mm3 (4.00-11.30)
[2024-06-04 14:02] LABS: Albumin, Blood 3.3 g/dL (3.4-5.0); Albumin/Globulin Ratio 1.2 (0.8-1.8); Bilirubin, Total 0.6 mg/dL (0.1-1.0); Bun/Creatinine Ratio 17.3 (12.0-20.0); Calcium, Blood 8.6 mg/dL (8.5-10.1); Creatinine, Blood 1.33 mg/dL (0.60-1.20); Globulin, Blood 2.7 g/dL (2.2-4.0); Potassium, Blood 4.2 mmol/L (3.5-5.5)
[2024-06-04] MEDS ORDERED: NS 1,000 ML IV SCH (14:10)
[2024-06-04] MEDS ORDERED: FINA5 PO (14:44)
[2024-06-04] MEDS ORDERED: METO100ER PO (14:45)
[2024-06-04] MEDS ORDERED: IPRAT-ALBUT 0.5-3 ML INH (14:48)
[2024-06-04] MEDS ORDERED: PLAVIX75 MG PO (14:48)
[2024-06-04] MEDS ORDERED: Digoxin 0.25 MG/ML 2ML Amp IV ONE (15:15)
[2024-06-04 16:45] VITALS: BP 112/88
[2024-06-04] MEDS ORDERED: DIGOX125 MC1 PO (16:46)
== END 2024-06-04 16:57 | disposition home or self-care (01) ==
LOC: ER 13:22
PROVIDERS: Student in an Organized Health Care Education/Training Program
DX: I48.91 Unspecified atrial fibrillation (principal); I95.9 Hypotension, unspecified; I25.2 Old myocardial infarction; I10 Essential (primary) hypertension; K21.9 Gastro-esophageal reflux disease without esophagitis; Z87.891 Personal history of nicotine dependence; Z95.0 Presence of cardiac pacemaker; Z79.01 Long term (current) use of anticoagulants; Z79.82 Long term (current) use of aspirin; Z79.899 Other long term (current) drug therapy
CPT/HCPCS: 80053; 84484; 85025; 93005; 93010; 96361; 96374; 99284-25; J1160; J7030

== ENCOUNTER 2024-10-17 11:17 | Observation (INO) | payer MEDICARE ==
[~2024-10-17] VITALS: Ht 172.7 cm; Wt 103.3 kg
[~2024-10-17 11:17] MED LIST changes: +DIGOX125 MC1 PO; +FINA5 PO; +IPRAT-ALBUT 0.5-3 ML INH; +PLAVIX75 MG PO
[2024-10-17 12:27] LABS: BASOPHILS ABSOLUTE AUTO 0.04 K/mm3 (0.00-0.23); BASOPHILS PERCENT AUTO 1 % (0-2); EOSINOPHILS ABSOLUTE AUTO 0.16 K/mm3 (0.00-0.68); EOSINOPHILS PERCENT AUTO 3 % (0-6); Hematocrit 44.7 % (37.0-53.0); Hemoglobin 15.1 g/dL (13.5-17.5); IMMATURE GRAN ABSOLUTE AUTO 0.03 K/mm3 (0.00-0.10); IMMATURE GRAN PERCENT AUTO 1 % (0-1); LYMPHOCYTES ABSOLUTE AUTO 0.94 K/mm3 (0.84-5.20); LYMPHOCYTES PERCENT AUTO 17 % (21-46); MONOCYTES ABSOLUTE AUTO 0.92 K/mm3 (0.16-1.47); MONOCYTES PERCENT AUTO 16 % (4-13); Mean Corpuscular HGB 30.5 pg (26.0-34.0); Mean Corpuscular HGB Conc 33.8 g/dL (31.5-36.5); Mean Corpuscular Volume 90 fL (80-100); Mean Platelet Volume 10.1 fL (9.1-12.4); NEUTROPHILS ABSOLUTE AUTO 3.53 K/mm3 (1.96-9.15); NEUTROPHILS PERCENT AUTO 63 % (41-73); Platelet Count 182 K/mm3 (150-400); RDW Coefficient Variation 13.7 % (11.7-14.2); RDW Standard Deviation 44.8 fL (35.1-46.3); Red Blood Cell Count 4.95 M/mm3 (4.30-5.90); White Blood Cell Count 5.62 K/mm3 (4.00-11.30)
[2024-10-17 13:03] LABS: Albumin, Blood 3.6 g/dL (3.4-5.0); Bilirubin, Total 0.7 mg/dL (0.1-1.0); Bun/Creatinine Ratio 16.1 (12.0-20.0); Calcium, Blood 8.8 mg/dL (8.5-10.1); Creatinine, Blood 1.12 mg/dL (0.60-1.20); Globulin, Blood 3.5 g/dL (2.2-4.0); Potassium, Blood 4.1 mmol/L (3.5-5.5); Total Protein, Blood 7.1 g/dL (6.4-8.2)
[2024-10-17] MEDS ORDERED: NS 1,000 ML IV SCH ×2 (13:20→14:35)
[2024-10-17] MEDS ORDERED: Ondansetron 4 MG TAB PO PRN (14:30)
[2024-10-17] MEDS ORDERED: Lactated Ringer's 1,000 ML IV SCH (14:30)
[2024-10-17] MEDS ORDERED: TraZODone HCl 50 MG Tab PO PRN (14:30)
[2024-10-17] MEDS ORDERED: Ipratropium/Albuterol SulF 2.5-0.5MG/3 ML Amp INH PRN (14:40)
[2024-10-17] MEDS ORDERED: FLU VACC TS2024-25(6MOS UP)/PF 45 MCG/0.5 ML SYRINGE IM ONE (16:00)
[2024-10-17 17:48] VITALS: BP 142/84
[2024-10-17 19:45] VITALS: BP 136/90
[2024-10-17] MEDS ORDERED: Famotidine 20 MG Tab PO SCH (21:00)
[2024-10-17] MEDS ORDERED: Lactobacil 2-S.Thermo-Bifido 1 1 Cap PO SCH (21:00)
[2024-10-17] MEDS ORDERED: Apixaban 5 MG Tab PO SCH (21:00)
[2024-10-17] MEDS ORDERED: Acetaminophen 500 MG Tab PO SCH (21:00)
[2024-10-18] VITALS (9 sets, daily range): BP systolic 109–141; BP diastolic 59–92
--- NOTE | 2024-10-18 03:38 | NUR ---
SHIFT SUMMARY PT IS A/O X4, ABLE TO MAKE HIS NEEDS KNOWN AND COOPERATIVE WITH CARE. PT REPORTS OCCASIONAL DIZZINESS @HS. VSS. TELE: A-FIB @93. PT REPORTS HAS A PACEMAKER. SBA TO THE RESTROOM. NS INFUSING @100MLS/HR ORDERED. PT REPORTS CONGESTION AND COUGH>2WEEKS LATELY. LS DIMINISHED @BASES, CLEAR UL'S. O2 SAT'S ON RA>95%. PT DENIES PAIN AND DISCOMFORT. BED AT THE LOWEST POSITION, CALL LIGHT W/I REACH.
[2024-10-18 04:35] LABS: Hematocrit 41.6 % (37.0-53.0); Hemoglobin 13.9 g/dL (13.5-17.5); Mean Corpuscular HGB 30.5 pg (26.0-34.0); Mean Corpuscular HGB Conc 33.4 g/dL (31.5-36.5); Mean Corpuscular Volume 91 fL (80-100); Mean Platelet Volume 10.1 fL (9.1-12.4); Platelet Count 170 K/mm3 (150-400); RDW Coefficient Variation 13.7 % (11.7-14.2); RDW Standard Deviation 45.9 fL (35.1-46.3); Red Blood Cell Count 4.56 M/mm3 (4.30-5.90); White Blood Cell Count 5.33 K/mm3 (4.00-11.30)
[2024-10-18 05:00] LABS: Bun/Creatinine Ratio 17.9 (12.0-20.0); Calcium, Blood 7.8 mg/dL (8.5-10.1); Creatinine, Blood 0.95 mg/dL (0.60-1.20); Potassium, Blood 3.8 mmol/L (3.5-5.5)
[2024-10-18] MEDS ORDERED: Atorvastatin 10 MG Tab PO SCH (09:00)
[2024-10-18] MEDS ORDERED: Tamsulosin HCl 0.4 MG Cap PO SCH (09:00)
[2024-10-18] MEDS ORDERED: Atorvastatin 40 MG Tab PO SCH (09:00)
[2024-10-18] MEDS ORDERED: NS IV SCH (09:00)
[2024-10-18] MEDS ORDERED: Finasteride 5 MG Tab PO SCH (09:00)
[2024-10-18] MEDS ORDERED: Enoxaparin 30 MG/0.3 ML SYR SC SCH (09:00)
[2024-10-18] MEDS ORDERED: Digoxin 0.125 MG in NS 4.5 ML IV SCH (09:00)
[2024-10-18] MEDS ORDERED: DIGOXIN IV SCH (09:00)
[2024-10-18] MEDS ORDERED: Metoprolol Tartrate 25 MG Tab PO SCH (09:00)
[2024-10-18] MEDS ORDERED: NS 250 ML IV PRN (09:55)
--- NOTE | 2024-10-18 18:36 | NUR ---
SHIFT SUMMARY PATIENT A/OX4, ABLE TO MAKE NEEDS KNOWN. PLEASANT AND COOPERATIVE WITH CARE. IVs REMOVED TO LEFT AC AND RIGHT FOREARM WERE NOT PATENT. PATIENT WITH LIMITED SHOULDER MOBILITY TO RIGHT D/T ARTHRITIS. ABLE TO HAVE SHOWER TODAY AND PARTICIPATE IN OCCUPATIONAL AND PHYSICAL THERAPY. 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 PATIENT WILL NEED OUTPATIENT CONSULT FOR VASCULAR SURGERY AND STENT PLACEMENT. NO OTHER CONCERNS AT THIS TIME, WILL CONTINUE TO MONITOR.
[2024-10-18] MEDS ORDERED: DEXTROMETHORPHAN/BENZOCAINE 1 EACH LOZENGE MT PRN (21:05)
--- NOTE | 2024-10-18 22:17 | NUR ---
NEW T-ORDER RECEIVED FROM THE ON-CALL HOSPITALIST JONATHON: CEPACOL THROAT LOZENGES 1 TAB PO Q4HRS PRN. ENTERED TO [facility], SEE EMAR. NO ADDITIONAL NEW ORDERS AT THIS TIME.
[2024-10-19 00:19] VITALS: BP 146/98
--- NOTE | 2024-10-19 03:25 | NUR ---
SHIFT SUMMARY NO ACUTE EVENTS DURING THIS SHIFT. TELE: A-FIB @68. PT DENIES PAIN/PRESSURE/SOB. PT REPORTS HAVING SINUS CONGESTION FOR >2WEEKS. LS COARSE @BASES. OCCASIONAL COUGH NOTED. NEW ORDER FOR CEPACOL LOZENGES RECEIVED FROM THE ON-CALL HOSPITALIST. PT REPORTS SORE THROAT D/T COUGHING. PT C/O CHRONIC RIGHT SHOULDER PAIN D/T ARTHITIS. MEDICATED WITH SCHEDULED TYLENOL PO 500MG 1 TAB @HS. VSS. ORTHOSTATIC BP'S TAKEN @HS. PT REPORTS SLIGHT DIZZYNESS. SBA TO THE RESTROOM. BED AT THE LOWEST POSITION, CALL LIGHT W/I REACH. PT IS A/O X4, ABLE TO MAKE HIS NEEDS KNOWN AND COOPERATIVE WITH CARE, PLEASANT WITH STAFF.
[2024-10-19 04:07] VITALS: BP 136/80
[2024-10-19 07:32] VITALS: BP 133/88
[2024-10-19] MEDS ORDERED: Clopidogrel Bisulfate 75 MG Tab PO SCH (09:00)
[2024-10-19] MEDS ORDERED: METO25ER PO (12:36)
--- NOTE | 2024-10-19 14:18 | NUR ---
DISCHARGE NOTE PATIENT A/OX4, ABLE TO MAKE NEEDS KNOWN. PLEASANT AND COOPERATIVE WITH CARE. IVs AND TELEMETRY REMOVED PRIOR TO DISCHARGE. PATIENT EDUCATED REGARDING FOLLOW UP APPOINTMENTS, MEDICATION CHANGES AND DIAGNOSIS OF SSS. PATIENT AGREEABLE TO DISCHARGE PLAN. ASSISTED TO PERSONAL VEHICLE WHERE FAMILY MET TO TRANSPORT HIM HOME. ASSISTED TO VEHICLE VIA WHEELCHAIR BY [facility] STAFF WITH ALL BELONGINGS IN HAND.
== END 2024-10-19 14:10 | disposition home health service (06) ==
LOC: ER 11:17 → ERHOLD 11:18 → MEDS 17:44
PROVIDERS: Physician Assistant; ADMIT Hospitalist
DX: G45.8 Other transient cerebral ischemic attacks and related syndromes (principal); I25.10 Atherosclerotic heart disease of native coronary artery without angina pectoris; I25.2 Old myocardial infarction; I49.5 Sick sinus syndrome; I48.11 Longstanding persistent atrial fibrillation; I10 Essential (primary) hypertension; E78.5 Hyperlipidemia, unspecified; K21.9 Gastro-esophageal reflux disease without esophagitis; N40.0 Benign prostatic hyperplasia without lower urinary tract symptoms; Z95.0 Presence of cardiac pacemaker; Z87.891 Personal history of nicotine dependence; Z79.01 Long term (current) use of anticoagulants; Z79.02 Long term (current) use of antithrombotics/antiplatelets; Z79.899 Other long term (current) drug therapy
CPT/HCPCS: 36415; 70450; 70498; 71046; 80048; 80053; 80162; 83690; 83735; 84484; 85025; 85027; 93005; 93010; 96360; 96361; 96365; 96376; 97110; 97116; 97162; 97165; 97535; 99285-25; A9270; G0378; G0480; J1160; J7030; Q9967

== ENCOUNTER 2025-05-17 18:24 | Inpatient (IN) | payer MEDICARE ==
[~2025-05-17] VITALS: Ht 172.7 cm; Wt 101.2 kg
[2025-05-17] MEDS ORDERED: NS 1,000 ML IV SCH ×2 (19:00→20:10)
[2025-05-17 19:13] LABS: BASOPHILS ABSOLUTE AUTO 0.03 K/mm3 (0.00-0.23); BASOPHILS PERCENT AUTO 0 % (0-2); EOSINOPHILS ABSOLUTE AUTO 0.11 K/mm3 (0.00-0.68); EOSINOPHILS PERCENT AUTO 2 % (0-6); Hematocrit 43.9 % (37.0-53.0); Hemoglobin 14.1 g/dL (13.5-17.5); IMMATURE GRAN ABSOLUTE AUTO 0.01 K/mm3 (0.00-0.10); IMMATURE GRAN PERCENT AUTO 0 % (0-1); LYMPHOCYTES ABSOLUTE AUTO 0.79 K/mm3 (0.84-5.20); LYMPHOCYTES PERCENT AUTO 12 % (21-46); MONOCYTES ABSOLUTE AUTO 0.28 K/mm3 (0.16-1.47); MONOCYTES PERCENT AUTO 4 % (4-13); Mean Corpuscular HGB Conc 32.1 g/dL (31.5-36.5); Mean Corpuscular Volume 94 fL (80-100); NEUTROPHILS ABSOLUTE AUTO 5.53 K/mm3 (1.96-9.15); NEUTROPHILS PERCENT AUTO 82 % (41-73); NRBC ABSOLUTE 0.00 K/mm3 (0.00-0.02); NRBC Auto 0.0 /100 WBC (0.0-0.2); Platelet Count 192 K/mm3 (150-400); RDW Coefficient Variation 14.1 % (11.7-14.2); RDW Standard Deviation 48.2 fL (35.1-46.3)
[2025-05-17 19:26] LABS: Alanine Aminotransfer (ALT/SGP 39.0 U/L (12-78); Albumin, Blood 3.7 g/dL (3.4-5.0); Albumin/Globulin Ratio 1.2 (0.8-1.8); Anion Gap 9.0 mmol/L (3-11); Aspartate Aminotrans (AST/SGOT 33.0 U/L (12-37); Bilirubin, Total 0.4 mg/dL (0.1-1.0); Blood Urea Nitrogen 15.0 mg/dL (8-24); CO2, Blood 25.0 mmol/L (21-32); Calcium, Blood 8.5 mg/dL (8.5-10.1); Chloride, Blood 110.0 mmol/L (98-108); Creatinine, Blood 0.97 mg/dL (0.60-1.20); Globulin, Blood 3.0 g/dL (2.2-4.0); Glucose, Blood 142.0 mg/dL (70-99); Potassium, Blood 3.6 mmol/L (3.5-5.5); Sodium, Blood 140.0 mmol/L (136-145); Total Protein, Blood 6.7 g/dL (6.4-8.2)
[2025-05-17 19:59] LABS: Influenza A, PCR NEGATIVE (NEGATIVE); Influenza B, PCR NEGATIVE (NEGATIVE); Resp Syncytial Virus, PCR NEGATIVE (NEGATIVE); SARS-Cov-2 (COVID-19) PCR, MMC NEGATIVE (NEGATIVE)
[2025-05-17 20:51] LABS: pH Blood Venous 7.36 (7.34-7.37)
[2025-05-17] MEDS ORDERED: Metoprolol Tartrate 1 MG/ML 5 ML VIAL IV PRN (23:05)
[2025-05-17] MEDS ORDERED: CefTRIAXone Sodium 1,000 MG in NS 100 ML IV ONE (23:10)
[2025-05-17] MEDS ORDERED: WARF2.5 PO (23:51)
[2025-05-18] VITALS (7 sets, daily range): BP systolic 110–139; BP diastolic 74–100
[2025-05-18] MEDS ORDERED: Metoprolol Tartrate 1 MG/ML 5 ML VIAL IV PRN (00:40)
[2025-05-18] MEDS ORDERED: Magnesium Hydroxide Conc 10 ML UDC PO PRN (00:45)
[2025-05-18] MEDS ORDERED: FLU VACC TS2025(65UP)/MF59C/PF 45 MCG/0.5 ML SYRINGE IM SCH (00:45)
[2025-05-18 00:51] LABS: Magnesium, Blood 1.4 mg/dL (1.6-2.4)
[2025-05-18 00:56] LABS: Phosphorus, Blood 0.7 mg/dL (2.5-4.9)
[2025-05-18] MEDS ORDERED: Magnesium Sulf 2 GM/Water 50ML 50 ML IV ONE (01:15)
[2025-05-18] MEDS ORDERED: Ipratropium/Albuterol SulF 2.5-0.5MG/3 ML Amp INH PRN (03:30)
[2025-05-18 03:47] LABS: BASOPHILS ABSOLUTE AUTO 0.02 K/mm3 (0.00-0.23); BASOPHILS PERCENT AUTO 0 % (0-2); EOSINOPHILS ABSOLUTE AUTO 0.02 K/mm3 (0.00-0.68); EOSINOPHILS PERCENT AUTO 0 % (0-6); Hematocrit 39.4 % (37.0-53.0); Hemoglobin 13.2 g/dL (13.5-17.5); IMMATURE GRAN ABSOLUTE AUTO 0.06 K/mm3 (0.00-0.10); IMMATURE GRAN PERCENT AUTO 0 % (0-1); LYMPHOCYTES ABSOLUTE AUTO 0.39 K/mm3 (0.84-5.20); LYMPHOCYTES PERCENT AUTO 3 % (21-46); MONOCYTES ABSOLUTE AUTO 1.20 K/mm3 (0.16-1.47); MONOCYTES PERCENT AUTO 9 % (4-13); Mean Corpuscular HGB Conc 33.5 g/dL (31.5-36.5); Mean Corpuscular Volume 91 fL (80-100); NEUTROPHILS ABSOLUTE AUTO 12.42 K/mm3 (1.96-9.15); NEUTROPHILS PERCENT AUTO 88 % (41-73); NRBC ABSOLUTE 0.00 K/mm3 (0.00-0.02); NRBC Auto 0.0 /100 WBC (0.0-0.2); Platelet Count 174 K/mm3 (150-400); RDW Coefficient Variation 14.2 % (11.7-14.2); RDW Standard Deviation 47.8 fL (35.1-46.3)
[2025-05-18 04:03] LABS: Prothrombin Time Results 25.9 Sec (9.7-11.5)
[2025-05-18 04:19] LABS: Alanine Aminotransfer (ALT/SGP 115.0 U/L (12-78); Albumin, Blood 3.4 g/dL (3.4-5.0); Albumin/Globulin Ratio 1.3 (0.8-1.8); Anion Gap 9.0 mmol/L (3-11); Aspartate Aminotrans (AST/SGOT 88.0 U/L (12-37); Bilirubin, Total 0.6 mg/dL (0.1-1.0); Blood Urea Nitrogen 14.0 mg/dL (8-24); CO2, Blood 23.0 mmol/L (21-32); Calcium, Blood 8.0 mg/dL (8.5-10.1); Chloride, Blood 110.0 mmol/L (98-108); Creatinine, Blood 0.84 mg/dL (0.60-1.20); Globulin, Blood 2.7 g/dL (2.2-4.0); Glucose, Blood 131.0 mg/dL (70-99); Potassium, Blood 4.4 mmol/L (3.5-5.5); Sodium, Blood 138.0 mmol/L (136-145); Thyroid Stimulating Hormone 0.631 uIU/mL (0.360-4.800); Total Protein, Blood 6.1 g/dL (6.4-8.2)
[2025-05-18] MEDS ORDERED: FINA5 PO (07:51)
[2025-05-18] MEDS ORDERED: TAMS.4ER PO (07:52)
[2025-05-18] MEDS ORDERED: DIGOX125 MC1 PO (07:52)
[2025-05-18] MEDS ORDERED: CLOP75 PO (07:53)
--- NOTE | 2025-05-18 08:27 | NUR ---
PT TRANSFER; pt transferred from ed via gurney at approx 0745. Pt able to ambulate to bed SBA. Pt a/o x4, able to make needs known. Strength equal bilaterally. Pt on room air, sats >95%. C/O SOB with exertion, and while lying in bed. Pt afib 90-100S, denies chest pain/pressure. All pulses palpable and present. 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 No BP on L arm. Pt lying in bed, call within reach.
[2025-05-18] MEDS ORDERED: Lactobacil 2-S.Thermo-Bifido 1 1 Cap PO SCH (09:00)
--- NOTE | 2025-05-18 16:53 | NUR ---
SHIFT SUMMARY; PT A/O X4, ABLE TO MAKE NEEDS KNOWN. PT STRENGHTH EQUAL BILATRALLY. PERRLA. ROOM AIR, SATS >92%. C/O SOB ON EXERTION. CRACKLES IN ALL BASES, PT COUGHING PRODUCTIVE SPUTUM. AFIB 90-100s, 120-130s WITH MOVEMENT. PT DENIES CHEST PAIN/PRESSURE. ALL PULSES PRESENT AND PALPABLE. PT SBA TO BATHROOM DUE TO SOB/LINES/CORDS/TELE. PT ENDORSES ARTHIRITIS PAIN, UPDATED EMAR. MEDICATED PT PER EMAR. PT LYING IN BED, CALL WITHIN REACH. WILL REPORT TO ONCOMING RN.
--- NOTE | 2025-05-18 18:03 | NUR ---
UPDATE: PT HR SUSTAINING >110s, MEDICATED PT PER EMAR. PT HR 90-100s. OTHER VSS. DENIES CHEST PAIN/PRESSURE. PT LYING IN BED, CALL IN REACH.
[2025-05-18] MEDS ORDERED: CefTRIAXone Sodium 1,000 MG in NS 100 ML IV SCH (21:00)
--- NOTE | 2025-05-18 23:30 | NUR ---
PATIENT TRANSFER FROM U [facility]. REPORT TAKEN FROM RACHEL OJEDA. PATIENT ARRIVED WITH PERSONAL BELONGINGS. DENIES CHEST PAIN, SOB, AND N/V. BEDS SWITCHED OUT. ON ROOM AIR. PRANAV.
--- NOTE | 2025-05-18 23:35 | NUR ---
transfer summary PT A&O X4, CALM, COOPERATIVE TO CARE. HR IN THE 90'S-100'S, AFIB. HR INCREASES TO THE 110'S-120'S WITH ACTIVITY BUT DOESNT SUSTAIN. HE DENIES ANY CP/PRESSURE, HE REPORTS CHRONIC NUMB/TINGLING IN BILAT HANDS/FEET. SBP STABLE. SpO2 >92%. PER REPORT PT WAS DESATING WHILE SLEEPING. PT UP USING BATHROOM WITH SBA-IND, PT USES CANE AT HOME. PT MEDICAL WITH TELE STATUS. ROOM AVIALABLE ON MEDICAL FLOOR. REPORT GIVEN TO ANA OJEDA. PT TRANSFERED TO ROOM 328 WITH PCT.
--- NOTE | 2025-05-19 04:11 | NUR ---
SHIFT SUMMARY PATIENT HAD NO ACUTE CHANGES SINCE TRANSFER. ALERT ORIENTED AND ONE ASSIST TO BR. DENIES CHEST PAIN AND N/V. VSS/AFEBRILE. SOB W/EXERTION. PIV INTACT. TELE MONITOR AFIB V-PACED 90. CALL LIGHT IN REACH. BED IN LOWEST POSITION. WILL CONTINUE TO MONITOR UNTIL DAY SHIFT NURSE ASSUMES CARE.
[2025-05-19 05:11] VITALS: BP 154/100
[2025-05-19 05:29] LABS: BASOPHILS ABSOLUTE AUTO 0.02 K/mm3 (0.00-0.23); BASOPHILS PERCENT AUTO 0 % (0-2); EOSINOPHILS ABSOLUTE AUTO 0.17 K/mm3 (0.00-0.68); EOSINOPHILS PERCENT AUTO 3 % (0-6); Hematocrit 38.5 % (37.0-53.0); Hemoglobin 12.3 g/dL (13.5-17.5); IMMATURE GRAN ABSOLUTE AUTO 0.02 K/mm3 (0.00-0.10); IMMATURE GRAN PERCENT AUTO 0 % (0-1); LYMPHOCYTES ABSOLUTE AUTO 0.98 K/mm3 (0.84-5.20); LYMPHOCYTES PERCENT AUTO 15 % (21-46); MONOCYTES ABSOLUTE AUTO 0.54 K/mm3 (0.16-1.47); MONOCYTES PERCENT AUTO 8 % (4-13); Mean Corpuscular HGB Conc 31.9 g/dL (31.5-36.5); Mean Corpuscular Volume 94 fL (80-100); NEUTROPHILS ABSOLUTE AUTO 5.01 K/mm3 (1.96-9.15); NEUTROPHILS PERCENT AUTO 74 % (41-73); NRBC ABSOLUTE 0.00 K/mm3 (0.00-0.02); NRBC Auto 0.0 /100 WBC (0.0-0.2); Platelet Count 147 K/mm3 (150-400); RDW Coefficient Variation 14.6 % (11.7-14.2); RDW Standard Deviation 50.3 fL (35.1-46.3)
[2025-05-19 05:55] LABS: Alanine Aminotransfer (ALT/SGP 92.0 U/L (12-78); Albumin, Blood 3.2 g/dL (3.4-5.0); Albumin/Globulin Ratio 1.1 (0.8-1.8); Anion Gap 6.0 mmol/L (3-11); Aspartate Aminotrans (AST/SGOT 39.0 U/L (12-37); Bilirubin, Total 0.4 mg/dL (0.1-1.0); Blood Urea Nitrogen 12.0 mg/dL (8-24); CO2, Blood 25.0 mmol/L (21-32); Calcium, Blood 8.4 mg/dL (8.5-10.1); Chloride, Blood 110.0 mmol/L (98-108); Creatinine, Blood 0.85 mg/dL (0.60-1.20); Globulin, Blood 2.9 g/dL (2.2-4.0); Glucose, Blood 104.0 mg/dL (70-99); Magnesium, Blood 2.0 mg/dL (1.6-2.4); Phosphorus, Blood 2.0 mg/dL (2.5-4.9); Potassium, Blood 4.3 mmol/L (3.5-5.5); Sodium, Blood 137.0 mmol/L (136-145); Total Protein, Blood 6.1 g/dL (6.4-8.2)
[2025-05-19 06:16] LABS: Prothrombin Time Results 17.5 Sec (9.7-11.5)
[2025-05-19 07:34] VITALS: BP 151/88
[2025-05-19 11:34] VITALS: BP 141/98
[2025-05-19] MEDS ORDERED: Albuterol 2.5 MG/3 ML VIAL INH PRN (12:00)
[2025-05-19] MEDS ORDERED: Ipratropium/Albuterol SulF 2.5-0.5MG/3 ML Amp INH SCH (12:00)
[2025-05-19 15:32] VITALS: BP 151/100
--- NOTE | 2025-05-19 16:00 | NUR ---
SHIFT SUMMARY- PT IS IN BED CALL LIGHT IN REACH NO S&S OF DISTRESS NOTED AT THIS TIME. PT HAS BEEN INDEPENDENT IN THE ROOM. HE USES THE CALL LIGHT APROPRIATELY. SPDIUM PHOSPHATE INFUSING PER EMAR AT THIS TIME. PT STATES HE HAS CLOTS IN HIS LEFT ARM AND HAS A SCHEDULE PROCEDURE IN [place] TO REMOVE THEM ON WEDNESDAY. SPUTUM CULTURE RESULT CAME BACK AND IS REFINING THE ANTIBIOTICS, PRIOR TO DISCHARGE.
[2025-05-19 20:09] VITALS: BP 124/76
[2025-05-20] VITALS (7 sets, daily range): BP systolic 114–153; BP diastolic 79–102
--- NOTE | 2025-05-20 04:05 | NUR ---
SHIFT SUMMARY PATIENT HR UP TO 150 PER STEAM ROOM ATTENDANT AND PATIENT WAS STANDING FIXING COVERS ON HIS BED. HR DOWN ONCE BACK INTO BED. RUNNING PACED AFIB 102. DENIES CHEST PAIN AND N/V. VSS/AFEBRILE. SOB W/EXERTION. CALL LIGHT IN REACH. BED IN LOWEST POSITION. WILL CONTINUE TO MONITOR UNTIL DAY SHIFT NURSE ASSUMES CARE.
[2025-05-20 05:03] LABS: BASOPHILS ABSOLUTE AUTO 0.03 K/mm3 (0.00-0.23); BASOPHILS PERCENT AUTO 1 % (0-2); EOSINOPHILS ABSOLUTE AUTO 0.15 K/mm3 (0.00-0.68); EOSINOPHILS PERCENT AUTO 3 % (0-6); Hematocrit 38.5 % (37.0-53.0); Hemoglobin 12.4 g/dL (13.5-17.5); IMMATURE GRAN ABSOLUTE AUTO 0.04 K/mm3 (0.00-0.10); IMMATURE GRAN PERCENT AUTO 1 % (0-1); LYMPHOCYTES ABSOLUTE AUTO 0.75 K/mm3 (0.84-5.20); LYMPHOCYTES PERCENT AUTO 13 % (21-46); MONOCYTES ABSOLUTE AUTO 0.54 K/mm3 (0.16-1.47); MONOCYTES PERCENT AUTO 10 % (4-13); Mean Corpuscular HGB Conc 32.2 g/dL (31.5-36.5); Mean Corpuscular Volume 92 fL (80-100); NEUTROPHILS ABSOLUTE AUTO 4.13 K/mm3 (1.96-9.15); NEUTROPHILS PERCENT AUTO 73 % (41-73); NRBC ABSOLUTE 0.00 K/mm3 (0.00-0.02); NRBC Auto 0.0 /100 WBC (0.0-0.2); Platelet Count 168 K/mm3 (150-400); RDW Coefficient Variation 14.1 % (11.7-14.2); RDW Standard Deviation 48.2 fL (35.1-46.3)
[2025-05-20 05:16] LABS: Prothrombin Time Results 13.9 Sec (9.7-11.5)
[2025-05-20 06:03] LABS: Alanine Aminotransfer (ALT/SGP 68.0 U/L (12-78); Albumin, Blood 3.3 g/dL (3.4-5.0); Albumin/Globulin Ratio 1.1 (0.8-1.8); Anion Gap 10.0 mmol/L (3-11); Aspartate Aminotrans (AST/SGOT 21.0 U/L (12-37); Bilirubin, Total 0.4 mg/dL (0.1-1.0); Blood Urea Nitrogen 11.0 mg/dL (8-24); CO2, Blood 24.0 mmol/L (21-32); Calcium, Blood 8.7 mg/dL (8.5-10.1); Chloride, Blood 110.0 mmol/L (98-108); Creatinine, Blood 0.82 mg/dL (0.60-1.20); Globulin, Blood 2.9 g/dL (2.2-4.0); Glucose, Blood 98.0 mg/dL (70-99); Potassium, Blood 3.8 mmol/L (3.5-5.5); Sodium, Blood 140.0 mmol/L (136-145); Total Protein, Blood 6.2 g/dL (6.4-8.2)
[2025-05-20] MEDS ORDERED: CefTRIAXone Sodium 2,000 MG in NS 100 ML IV SCH (14:00)
[2025-05-20] MEDS ORDERED: NS 250 ML IV PRN (14:30)
--- NOTE | 2025-05-20 19:13 | NUR ---
SHIFT SUMMARY; PT A/OX4, PLEASANT, AND INDEPENDENT. PT ON TELE RUNNING TACHY W/ AFIB IN 140S UPON AMBULATING TO THE RESTROOM. PT GIVEN AM DOSE OF METOPROLOL THIS MORNING OF 50MG AND DIGOXIN 125 MCG. PT RECEIEVED ANTIBIOTIC IV THERAPY. LUNGS SOUNDS ASCULATATED WITH CRACKLES HEARD IN THE LUNG BASES. CALL LIGHT WITHIN REACH AND BED IN LOW POSITION.
--- NOTE | 2025-05-20 21:13 | NUR ---
TELE MONITOR REPORTS SUSTAINED HR 120-130 PACED AFIB. IV LOPRESSOR 5 MG GIVEN PER EMAR FOR SUSTAINED HR >110 WITH TELE MONITORING. PATIENT RESTING IN BED. WCTM.
--- NOTE | 2025-05-20 22:15 | NUR ---
TELE MONITOR REPORTS HR DOWN TO 105. WCTM.
[2025-05-21] VITALS (7 sets, daily range): BP systolic 117–153; BP diastolic 96–115
--- NOTE | 2025-05-21 04:03 | NUR ---
SHIFT SUMMARY PATIENT HR 120-130 PER ELECTRIC DISTRIBUTION CHECKER AND IV METOPROLOL 5 MG GIVEN WITH HR DOWN TO 105 AND LATER 87. DENIES CHEST PAIN AND N/V. SOB W/EXERTION. RT IN FOR BREATHING TX. PIVS INTACT. HAD BM THIS SHIFT. CALL LIGHT IN REACH. BED IN LOWEST POSITION. WILL CONTINUE TO MONITOR UNTIL DAY SHIFT NURSE ASSUMES CARE.
[2025-05-21 05:30] LABS: BASOPHILS ABSOLUTE AUTO 0.03 K/mm3 (0.00-0.23); BASOPHILS PERCENT AUTO 1 % (0-2); EOSINOPHILS ABSOLUTE AUTO 0.20 K/mm3 (0.00-0.68); EOSINOPHILS PERCENT AUTO 3 % (0-6); Hematocrit 38.9 % (37.0-53.0); Hemoglobin 13.1 g/dL (13.5-17.5); IMMATURE GRAN ABSOLUTE AUTO 0.04 K/mm3 (0.00-0.10); IMMATURE GRAN PERCENT AUTO 1 % (0-1); LYMPHOCYTES ABSOLUTE AUTO 0.73 K/mm3 (0.84-5.20); LYMPHOCYTES PERCENT AUTO 13 % (21-46); MONOCYTES ABSOLUTE AUTO 0.49 K/mm3 (0.16-1.47); MONOCYTES PERCENT AUTO 8 % (4-13); Mean Corpuscular HGB Conc 33.7 g/dL (31.5-36.5); Mean Corpuscular Volume 90 fL (80-100); NEUTROPHILS ABSOLUTE AUTO 4.32 K/mm3 (1.96-9.15); NEUTROPHILS PERCENT AUTO 74 % (41-73); NRBC ABSOLUTE 0.00 K/mm3 (0.00-0.02); NRBC Auto 0.0 /100 WBC (0.0-0.2); Platelet Count 194 K/mm3 (150-400); RDW Coefficient Variation 14.2 % (11.7-14.2); RDW Standard Deviation 46.4 fL (35.1-46.3)
[2025-05-21 05:45] LABS: Prothrombin Time Results 16.1 Sec (9.7-11.5)
[2025-05-21 05:50] LABS: Anion Gap 8.0 mmol/L (3-11); Blood Urea Nitrogen 9.0 mg/dL (8-24); CO2, Blood 25.0 mmol/L (21-32); Calcium, Blood 9.0 mg/dL (8.5-10.1); Chloride, Blood 109.0 mmol/L (98-108); Creatinine, Blood 0.92 mg/dL (0.60-1.20); Glucose, Blood 94.0 mg/dL (70-99); Potassium, Blood 3.9 mmol/L (3.5-5.5); Sodium, Blood 138.0 mmol/L (136-145)
--- NOTE | 2025-05-21 14:49 | NUR ---
NOTE ECHO AND ULTRASOUND COMPLETE. REPORTED ULTRASOUND RESULTS TO DR. PARK. DR. PARK REPORTED WILL D/C LOVENOX AND CHANGE METOPROLOL DOSE.
[2025-05-21] MEDS ORDERED: DEXTROMETHORPHAN/BENZOCAINE 1 EACH LOZENGE MT PRN (15:15)
--- NOTE | 2025-05-21 19:54 | NUR ---
SHIFT SUMMARY PT A&OX4. PT ADMITTED DUE TO AMP CP DIFF BREATHING. PT HAS PNEUMONIA. PT INDEPENDENT IN ROOM. VSS. PT ON TELE. HR INCREASES WITH AMBULATION. ECHO AND UKTRASOUND OF L UPPER EXTREMITY COMPLETED. BLOOD PRESSURE STABLE. PT REPORTS NO CHEST PAIN. PT GETS SCHEDULED TYLENOL FOR RHEUMATOID PAIN. PT GETS IV ANTIBIOTICS. GUAIFENESIN ORDERED FOR COUGH. PT REPORTS SORE THROAT, PT HAS LOZENGES ORDERED, THIS RN GAVE PER ORDER. FLUTTER THERAPY AT BEDSIDE. PT CONT OF URINE AND BM. RESPIRATORY CARE INVOLVED. NEB TREATMENTS GIVEN PER RESPIRATORY. PT IN BED, BED IN LOWEST POSITION, CALL LIGHT IN REACH.
[2025-05-21] MEDS ORDERED: Enoxaparin 100 MG/ML 1ML SYR SC SCH (21:00)
[2025-05-22] VITALS (14 sets, daily range): BP systolic 112–153; BP diastolic 87–111
[2025-05-22 06:08] LABS: BASOPHILS ABSOLUTE AUTO 0.04 K/mm3 (0.00-0.23); BASOPHILS PERCENT AUTO 0 % (0-2); EOSINOPHILS ABSOLUTE AUTO 0.11 K/mm3 (0.00-0.68); EOSINOPHILS PERCENT AUTO 1 % (0-6); Hematocrit 42.6 % (37.0-53.0); Hemoglobin 14.0 g/dL (13.5-17.5); IMMATURE GRAN ABSOLUTE AUTO 0.07 K/mm3 (0.00-0.10); IMMATURE GRAN PERCENT AUTO 1 % (0-1); LYMPHOCYTES ABSOLUTE AUTO 0.59 K/mm3 (0.84-5.20); LYMPHOCYTES PERCENT AUTO 6 % (21-46); MONOCYTES ABSOLUTE AUTO 0.90 K/mm3 (0.16-1.47); MONOCYTES PERCENT AUTO 9 % (4-13); Mean Corpuscular HGB Conc 32.9 g/dL (31.5-36.5); Mean Corpuscular Volume 90 fL (80-100); NEUTROPHILS ABSOLUTE AUTO 8.94 K/mm3 (1.96-9.15); NEUTROPHILS PERCENT AUTO 84 % (41-73); NRBC ABSOLUTE 0.00 K/mm3 (0.00-0.02); NRBC Auto 0.0 /100 WBC (0.0-0.2); Platelet Count 221 K/mm3 (150-400); RDW Coefficient Variation 14.1 % (11.7-14.2); RDW Standard Deviation 46.6 fL (35.1-46.3)
[2025-05-22 06:18] LABS: Prothrombin Time Results 20.3 Sec (9.7-11.5)
[2025-05-22 06:34] LABS: Anion Gap 10.0 mmol/L (3-11); Blood Urea Nitrogen 12.0 mg/dL (8-24); CO2, Blood 21.0 mmol/L (21-32); Calcium, Blood 9.4 mg/dL (8.5-10.1); Chloride, Blood 105.0 mmol/L (98-108); Creatinine, Blood 0.98 mg/dL (0.60-1.20); Glucose, Blood 116.0 mg/dL (70-99); Potassium, Blood 4.4 mmol/L (3.5-5.5); Sodium, Blood 132.0 mmol/L (136-145)
--- NOTE | 2025-05-22 07:00 | NUR ---
Shift Summary AOx3. Pleasant. HR has been elevated throughout the night w/ ranges between 100-140's per tele. Patient has also been awake all night in and out of the bathroom, initially stating he feels like he needs to poop but just going a little at a time (not loose stools). Have not heard from tele toward the end of the shift RE status of heart rate so I called to check and found HR afib 140s. Patient noted to be sitting on the toilet using phone w/ new complaint of abdominal discomfort pointing at bladder. Stated only urinated x1 tonight and amount was very little. Also stated that he urinated "every hour during the day" but each time was little to nothing. Advised to inform staff when this occurs so it can be addressed before it causes a concern. Informed photovoltaic fabrication technician about giving lopressor IV. Med given. Straight cath completed using coude catheter. Patient tolerated well. Report given to oncoming RUSTY Anglin. Lopressor given x 1. Had Sedrick Persaud RN called to obtain straight cath order after scan showed > 1000cc. Gilbert also received bladder scan order to recheck Called Dr. Mac Jimenez Bladder scan performed Patient never complained about abdominal discomfort until this morning
--- NOTE | 2025-05-22 07:41 | NUR ---
NOTE NIGHT RN REPORTED "PT MIGHT NEED TO GO DOWN STAIRS FOR DRIP DUE TO UNRESOLVED HR, GAVE PT LOPRESSOR X2 AT BEGINING OF NIGHT. NIGHT RN LAST GAVE LOPRESSOR AT 0630, HR IS SUSTAINING 130 PER TELE." PT BLOOD PRESSURE IS 147/104. CALLED TO NOTIFY TELE, GIVING LOPRESSOR. PT HR BEFORE IV PUSH IS 138, MID PUSH 135, AFTER 136. PT REPORTS NO CHEST PAIN, DIZZINESS. PT BLOOD PRESSURE POST PUSH IS 149/106.
--- NOTE | 2025-05-22 09:05 | NUR ---
NOTE PT REF STOOL SOFTNER, REPORTS SOFT STOOLS. PT BP IS 145/106, PT GETTING METOPROLOL AND DIGOXIN. PT REPORTS "PCP REPORTED STOP DIGOXIN DUE TO INCREASE DOSE OF METOPROLOL" PT ON TELE. PT GETTING 3RD DOSE OF LOPRESSOR. THIS RN NOTIFIED TELE. HR IS SUSTAINING 130'S. PT AT REST. PT REPORTS PACEMAKER, PT REPORTS "THEY HAVE ZAPPED ME BEFORE." STOCKFEED MILLER NOTIFIED. PT REPORTS NO CHEST PAIN. [facility] THROUGH PUSH PT HR IS STILL SUSTAINING 130'S. POST PUSH PET TRAINER REPORTED JUMPING BETWEEN 1 TEENS AND 130'S."
--- NOTE | 2025-05-22 10:24 | NUR ---
NOTE PT GOT BACK TO BED FROM SHOWER. THIS RN CALLED TELE TO CHECK ON HR. TELE REPORTED HR IS 1 TEENS 120'S SUSTAINING.
[2025-05-22] MEDS ORDERED: Amiodarone HCl 450 MG in NS 250 ML IV SCH (12:00)
--- NOTE | 2025-05-22 12:17 | NUR ---
NOTE PHILOSOPHY SPECIALIST REPORTED TO DR. PARK AM EVENTS. KEITH RN REPORTED SALES PRODUCT MANAGER BLADDER SCANNED PT AND PT HAD 800ML URINE RETAINED. PT HAS FREQ URINATION REPORTS "DOESNT COME OUT ALL THE WAY." DR. PARK ORDERED COMBS. COMBS DRAINING ADEQUATE WITH NO DEPENDENT LOOPS, KEITH RN REPORTED INSERTING COMBS WITH STERALITY. DR. PARK REPORTED PT WILL BE TRANSFERED TO PCU. PT UPRIGHT EATING LUNCH, WILL TRANSFER TO PCU 4.
--- NOTE | 2025-05-22 12:56 | NUR ---
TRANSFER NOTE PT TRANSFERED TO PCU 4 VIA BED. GAVE REPORT TO HYDROCHLORIC AREA SUPERVISOR. PT BELONGINGS WITH PT.
[2025-05-22] MEDS ORDERED: Amiodarone HCl 150 MG in NS 100 ML IV ONE (13:20)
--- NOTE | 2025-05-22 15:46 | NUR ---
EOS/ASSUMPTION: PATIENT WAS A MEDICAL FLOOR TRANSFER FOR AMIO Gtt, ONE TIME METOPROLOL XL 50 NOT GIVEN, DUE TO AMIO INFUSING, WAS AWAITING BLOOD PRESSURE, AND RATE. RATE IMPROVED BLOOD PRESSURE STILL 110'S SYSTOLIC, OK TO HOLD PER DR. PARK WHEN CALLED. PATIENT TO RECIEVE COUMADIN FOR ANTICOAGULATION, AFIB HAS BEEN MUCH IMPROVED WITH AMIO BOLUS AND DRIP. TRENDING DOWN PREVIOUS 170 WITH EXERTION AND SUSTAING 130-140'S. NOW, 90-130'S. OCCASSIONALLY PACED BEAT SEEN. PATIENT NOTICES LITTLE DIFFERENCE WITH RATE CONTROL, BUT APPEARS TO BE LESS TACHYPNIC WITH SELF REPOSTIONING. COMBS CATHETER IN PLACE FOR ACUTE RETENTION. CONTINUOUS TELE IN PLACE NO ACUTE CONCERNS AT THIS TIME. PLAN OF CARE CONTINUES.
[2025-05-23 03:17] VITALS: BP 138/102
[2025-05-23 04:04] LABS: BASOPHILS ABSOLUTE AUTO 0.03 K/mm3 (0.00-0.23); BASOPHILS PERCENT AUTO 0 % (0-2); EOSINOPHILS ABSOLUTE AUTO 0.23 K/mm3 (0.00-0.68); EOSINOPHILS PERCENT AUTO 3 % (0-6); Hematocrit 40.1 % (37.0-53.0); Hemoglobin 13.2 g/dL (13.5-17.5); IMMATURE GRAN ABSOLUTE AUTO 0.06 K/mm3 (0.00-0.10); IMMATURE GRAN PERCENT AUTO 1 % (0-1); LYMPHOCYTES ABSOLUTE AUTO 1.10 K/mm3 (0.84-5.20); LYMPHOCYTES PERCENT AUTO 14 % (21-46); MONOCYTES ABSOLUTE AUTO 0.79 K/mm3 (0.16-1.47); MONOCYTES PERCENT AUTO 10 % (4-13); Mean Corpuscular HGB Conc 32.9 g/dL (31.5-36.5); Mean Corpuscular Volume 92 fL (80-100); NEUTROPHILS ABSOLUTE AUTO 5.71 K/mm3 (1.96-9.15); NEUTROPHILS PERCENT AUTO 72 % (41-73); NRBC ABSOLUTE 0.00 K/mm3 (0.00-0.02); NRBC Auto 0.0 /100 WBC (0.0-0.2); Platelet Count 217 K/mm3 (150-400); RDW Coefficient Variation 14.3 % (11.7-14.2); RDW Standard Deviation 48.3 fL (35.1-46.3)
[2025-05-23 04:19] LABS: Prothrombin Time Results 20.2 Sec (9.7-11.5)
[2025-05-23 04:22] LABS: Alanine Aminotransfer (ALT/SGP 35.0 U/L (12-78); Albumin, Blood 3.2 g/dL (3.4-5.0); Albumin/Globulin Ratio 1.0 (0.8-1.8); Anion Gap 7.0 mmol/L (3-11); Aspartate Aminotrans (AST/SGOT 16.0 U/L (12-37); Bilirubin, Total 0.6 mg/dL (0.1-1.0); Blood Urea Nitrogen 12.0 mg/dL (8-24); CO2, Blood 23.0 mmol/L (21-32); Calcium, Blood 8.9 mg/dL (8.5-10.1); Chloride, Blood 111.0 mmol/L (98-108); Creatinine, Blood 1.03 mg/dL (0.60-1.20); Globulin, Blood 3.2 g/dL (2.2-4.0); Glucose, Blood 102.0 mg/dL (70-99); Potassium, Blood 4.3 mmol/L (3.5-5.5); Sodium, Blood 137.0 mmol/L (136-145); Total Protein, Blood 6.4 g/dL (6.4-8.2)
--- NOTE | 2025-05-23 06:02 | NUR ---
SHIFT SUMMARY PT IS A&O X4, ABLE TO MAKE NEEDS KNOWN, MOVING ALL EXTREMITIES WITH PURPOSE, OBEYS COMMANDS, REPOSITIONING SELF IN BED, CALLS APPROPRIATELY. CONTINUOUS SPO2, SPO2 GREATER THAN 92% ON RA, NO SIGNS OF RESPIRATORY DISTRESS NOTED. CONTINUOUS TELE MONITORING, AFIB 90-110 S AT THE BEGINNING OF SHIFT TO 70-90 SS TOWARDS THE END OF SHIFT, BP STABLE WITH MAP GREATER THAN 65, PULSES PRESENT T/O, DENIES CHEST P/P T/O THIS SHIFT, AMIODERONE DRIP INFUSING PER ORDERS. BOWEL TONES PRESENT IN ALL 4Q, PT DENIES FEELINGS OF NAUSEA OR CONSTIPATION. COMBS CATH IS PATENT/DRAINING TO GRAVITY/SECURE, URINE YELLOW IN COLOR. BED LOWEST POSITION, CALL LIGHT IN REACH, AWAITING TO GIVE REPORT TO ONCOMING RN.
[2025-05-23 08:48] VITALS: BP 121/90
[2025-05-23 11:12] VITALS: BP 121/91
--- NOTE | 2025-05-23 12:48 | NUR ---
ASSUMPTION OF CARE ASSUMED CARE OF PATIENT AT 0700 AFTER BEDSIDE SHIFT REPORT. PATIENT AWAKE IN BED A0 X4. AFIB WITH HR 90-110 AND STABLE. AMIODORANE INFUSING PER EMAR. PATIENT DENIES CHEST PAIN/PRESSURE/SOB. SBP 120-140 AND STABLE. PATIENT O2 SAT >95% ON ROOM AIR. PATIENT IS SBA WITH WALKER, CAN REPOSITION HIMSELF IN BED. COMBS CATHETER IN PLACE DRAINING TO GRAVITY. PATIENT RESTING COMFORTABLLY IN BED IN LOWEST POSTITION, CALL LIGHT WITHIN REACH.
[2025-05-23 15:29] VITALS: BP 149/99
[2025-05-23] MEDS ORDERED: Ipratropium Bromide INH 0.02% 0.5 mg/2.5ML Vial INH SCH (15:40)
--- NOTE | 2025-05-23 18:33 | NUR ---
SHIFT SUMMARY IV AMIODARONE DC'D BY PROVIDER WELL PLAVIX. STARTING PO AMIODARONE TONIGHT. BACK ON HOME WARFARIN. METOPROLOL INCREASED PER PROVIDER. O2 SATS >95% ON RA. COMBS CATHETER STILL IN PLACE, PROVIDER PLANING TO ADDRESS TOMORROW. VITALS SIGNS STABLE. RESTING COMFORTABLY IN BED IN LOWEST POSITION, CALL LIGHT WITH IN REACH.
[2025-05-23 19:32] VITALS: BP 139/105
[2025-05-23 23:48] VITALS: BP 114/84
[2025-05-24] VITALS (7 sets, daily range): BP systolic 105–140; BP diastolic 73–106
[2025-05-24 04:31] LABS: BASOPHILS ABSOLUTE AUTO 0.05 K/mm3 (0.00-0.23); BASOPHILS PERCENT AUTO 1 % (0-2); EOSINOPHILS ABSOLUTE AUTO 0.23 K/mm3 (0.00-0.68); EOSINOPHILS PERCENT AUTO 3 % (0-6); Hematocrit 40.3 % (37.0-53.0); Hemoglobin 13.2 g/dL (13.5-17.5); IMMATURE GRAN ABSOLUTE AUTO 0.10 K/mm3 (0.00-0.10); IMMATURE GRAN PERCENT AUTO 1 % (0-1); LYMPHOCYTES ABSOLUTE AUTO 1.05 K/mm3 (0.84-5.20); LYMPHOCYTES PERCENT AUTO 13 % (21-46); MONOCYTES ABSOLUTE AUTO 0.89 K/mm3 (0.16-1.47); MONOCYTES PERCENT AUTO 11 % (4-13); Mean Corpuscular HGB Conc 32.8 g/dL (31.5-36.5); Mean Corpuscular Volume 92 fL (80-100); NEUTROPHILS ABSOLUTE AUTO 5.60 K/mm3 (1.96-9.15); NEUTROPHILS PERCENT AUTO 71 % (41-73); NRBC ABSOLUTE 0.00 K/mm3 (0.00-0.02); NRBC Auto 0.0 /100 WBC (0.0-0.2); Platelet Count 212 K/mm3 (150-400); RDW Coefficient Variation 14.2 % (11.7-14.2); RDW Standard Deviation 48.0 fL (35.1-46.3)
[2025-05-24 04:41] LABS: Prothrombin Time Results 18.4 Sec (9.7-11.5)
[2025-05-24 04:49] LABS: Anion Gap 9.0 mmol/L (3-11); Blood Urea Nitrogen 15.0 mg/dL (8-24); CO2, Blood 22.0 mmol/L (21-32); Calcium, Blood 8.6 mg/dL (8.5-10.1); Chloride, Blood 109.0 mmol/L (98-108); Creatinine, Blood 1.01 mg/dL (0.60-1.20); Glucose, Blood 94.0 mg/dL (70-99); Potassium, Blood 4.1 mmol/L (3.5-5.5); Sodium, Blood 136.0 mmol/L (136-145)
--- NOTE | 2025-05-24 05:50 | NUR ---
SHIFT SUMMARY PT A&O X4, CALM, COOPERATIVE TO CARE. HR IN THE 90'S-110'S AT REST. PT HR WILL INCREASE THE TO THE 120'S-130'S WITH MINIMAL ACTIVITY, DECREASES AT REST. HE DENIES ANY CP/PRESSURE, NUMB/TINGLING, SBP STABLE. SpO2 >92% ON RA, HE DENIES ANY SOB. HE HAS A COMBS CATH IN PLACE, DRAINING YELLOW URINE TO GRAVITY. PT RESTING IN BED AT THIS TIME, CALL LIGHT IN REACH. WILL MONITOR PT AND REPORT TO ONCOMING RN.
--- NOTE | 2025-05-24 17:43 | NUR ---
shift summary patient is medical stauts with tele. vital signs stable. patient worked with physical therapy today. plan for patient to discharge tomorrow. no acute changes this shift.
--- NOTE | 2025-05-24 22:41 | NUR ---
TRANSFER SUMMARY PT A&O X4, CALM, COOPERATIVE TO CARE. HR IN 80'S-90'S, PT DOES BREIFLY TACH UP TO THE 110'S-120'S WITH ACTIVITY. HE DENIES ANY CP/PRESSURE, NUMB/TINGLING, SBP STABLE. PT ON RA, SpO2 >92%. HE DENIES ANY SOB. PT HAD COMBS CATH REMOVED DURING DAY SHIFT. PT HAVING FREQUENT SMALL AMOUNTS OF URINE OUTPUT RANGING FROM 25-125MLS. VERY MINIMAL OUTPUT SINCE REMOVAL OF COMBS. HE DENIES ANY ABD PAIN/TENDER. PT MEDICAL STATUS WITH TELE. ROOM AVAILABLE ON MEDICAL FLOOR FOR PT. REPORT GIVEN TO TEO OJEDA. PT TRANSFERED TO MEDICAL FLOOR VIA BED WITH THIS RN AND PCT.
[2025-05-25 00:23] VITALS: BP 116/74
[2025-05-25 04:06] VITALS: BP 108/71
[2025-05-25 05:09] LABS: BASOPHILS ABSOLUTE AUTO 0.05 K/mm3 (0.00-0.23); BASOPHILS PERCENT AUTO 1 % (0-2); EOSINOPHILS ABSOLUTE AUTO 0.31 K/mm3 (0.00-0.68); EOSINOPHILS PERCENT AUTO 4 % (0-6); Hematocrit 40.6 % (37.0-53.0); Hemoglobin 13.3 g/dL (13.5-17.5); IMMATURE GRAN ABSOLUTE AUTO 0.13 K/mm3 (0.00-0.10); IMMATURE GRAN PERCENT AUTO 2 % (0-1); LYMPHOCYTES ABSOLUTE AUTO 1.12 K/mm3 (0.84-5.20); LYMPHOCYTES PERCENT AUTO 15 % (21-46); MONOCYTES ABSOLUTE AUTO 0.78 K/mm3 (0.16-1.47); MONOCYTES PERCENT AUTO 10 % (4-13); Mean Corpuscular HGB Conc 32.8 g/dL (31.5-36.5); Mean Corpuscular Volume 93 fL (80-100); NEUTROPHILS ABSOLUTE AUTO 5.20 K/mm3 (1.96-9.15); NEUTROPHILS PERCENT AUTO 68 % (41-73); NRBC ABSOLUTE 0.00 K/mm3 (0.00-0.02); NRBC Auto 0.0 /100 WBC (0.0-0.2); Platelet Count 229 K/mm3 (150-400); RDW Coefficient Variation 14.1 % (11.7-14.2); RDW Standard Deviation 48.4 fL (35.1-46.3)
[2025-05-25 05:24] LABS: Prothrombin Time Results 18.7 Sec (9.7-11.5)
[2025-05-25 07:13] VITALS: BP 112/80
[2025-05-25 07:28] LABS: Anion Gap 8.0 mmol/L (3-11); Blood Urea Nitrogen 17.0 mg/dL (8-24); CO2, Blood 22.0 mmol/L (21-32); Calcium, Blood 9.0 mg/dL (8.5-10.1); Chloride, Blood 109.0 mmol/L (98-108); Creatinine, Blood 1.0 mg/dL (0.60-1.20); Glucose, Blood 91.0 mg/dL (70-99); Magnesium, Blood 1.8 mg/dL (1.6-2.4); Potassium, Blood 4.2 mmol/L (3.5-5.5); Sodium, Blood 135.0 mmol/L (136-145)
[2025-05-25 11:45] VITALS: BP 122/82
[2025-05-25] MEDS ORDERED: METO100ER PO (12:20)
[2025-05-25] MEDS ORDERED: WARF5 PO (12:21)
[2025-05-25] MEDS ORDERED: POTCHL20ER PO (12:22)
[2025-05-25] MEDS ORDERED: CEFP200 PO (12:22)
[2025-05-25] MEDS ORDERED: DILT120 PO (12:22)
[2025-05-25] MEDS ORDERED: AMIODARONE HCL400 M2 PO (12:22)
[2025-05-25] MEDS ORDERED: SENN187 PO (12:23)
[2025-05-25] MEDS ORDERED: Amiodarone HCl200 MG PO (12:23)
[2025-05-25] MEDS ORDERED: VISBIOME 112.51 EACH PO (12:23)
[2025-05-25 14:59] VITALS: BP 115/73
--- NOTE | 2025-05-25 16:22 | NUR ---
SHIFT SUMMARY/DISCHARGE 1545 AOX4, COOPERATIVE, ABLE TO MAKE NEEDS KNOWN. PT IS SBA IN ROOM. TOLERATING MEDICATIONS. ON TELE. ON ROOM AIR. NO OTHER ACUTE EVENTS TOOK PLACE THIS SHIFT. THIS RN WENT OVER DC PAPERWORK, PT TOOK BELONGINGS. SOLAR ENERGY INSTALLATION MANAGER TRANSPORTED PT VIA WC DOWN TO PT ENTRANCE.
== END 2025-05-25 15:58 | disposition home health service (06) | DRG 871 ==
LOC: ER 18:24 → PCU 18:25 → ERHOLD 18:25 → PCU 05-18 07:45 → MEDS 05-18 15:37 → PCU 05-18 15:38 → MEDS 05-18 23:24 → PCU 05-22 12:59 → MEDS 05-24 22:21 → ENPENDDIS 05-25 11:49 → MEDS 05-25 15:58
PROVIDERS: Family Medicine; Internal Medicine; Pharmacist Pharmacotherapy; Student in an Organized Health Care Education/Training Program; ADMIT Internal Medicine
PROC: 3E03329 Introduction of Other Anti-infective into Peripheral Vein, Percutaneous Approach (ICD-10-PCS; principal; 2025-05-17)
PROC: 0T9B70Z Drainage of Bladder with Drainage Device, Via Natural or Artificial Opening (ICD-10-PCS; 2025-05-22)
DX: A41.9 Sepsis, unspecified organism (principal); J18.9 Pneumonia, unspecified organism; E87.20 Acidosis, unspecified; I48.19 Other persistent atrial fibrillation; R65.20 Severe sepsis without septic shock; I25.10 Atherosclerotic heart disease of native coronary artery without angina pectoris; E78.5 Hyperlipidemia, unspecified; E83.39 Other disorders of phosphorus metabolism; B95.1 Streptococcus, group B, as the cause of diseases classified elsewhere; I10 Essential (primary) hypertension; J44.9 Chronic obstructive pulmonary disease, unspecified; I49.5 Sick sinus syndrome; R33.9 Retention of urine, unspecified; Z79.01 Long term (current) use of anticoagulants; Z95.0 Presence of cardiac pacemaker; I25.2 Old myocardial infarction; Z95.5 Presence of coronary angioplasty implant and graft; Z95.828 Presence of other vascular implants and grafts; Z87.891 Personal history of nicotine dependence; Z86.718 Personal history of other venous thrombosis and embolism
CPT/HCPCS: 36415; 71046; 71260; 80048; 80053; 82803; 83605; 83735; 83880; 84100; 84145; 84443; 84484; 85025; 85610; 87040; 87070; 87147; 87205; 87637; 93005; 93010; 93306; 93971; 94640; 94664; 94760; 94762; 96361; 96365; 96366; 96367; 96368; 96375; 97112; 97161; 97530; 99285-25; A9270; G0378; J0282; J0696; J3475; J3480; J7030; J7050; J7060; Q9967